=== PATIENT | female | born 1965 | race Caucasian/White ===

== ENCOUNTER → 2017-03-18 | Outpatient (CLI) | payer BC ==
--- NOTE | 2017-03-18 09:53 | NM ---
EXAMINATION TYPE: NM hepatobiliary w EF DATE OF EXAM: 03/18/2017 COMPARISON: CT abdomen and pelvis December 23, 2015 HISTORY: Right upper quadrant pain per order. Pain for 3 weeks with heartburn and reflux-like symptom s. TECHNIQUE: After the intravenous administration of 5.5 mCi Tc 99m Mebrofenin hepatobiliary scintigrap hy is performed. Immediate images post injection. FINDINGS: There is satisfactory initial accumulation of tracer by the liver. The gallbladder is visualized wit hin 15 minutes. The small bowel activity is noted within 20 minutes. At one hour 8 ounces of oral e nsure plus is given to mimic CCK and gallbladder ejection fraction is calculated at 18 %, diminished from the normal range. Therefore there is no scintigraphic evidence of cystic or common bile duct ob struction to suggest acute cholecystitis overall diminished ejection fraction is consistent with director of student financial services taras cholecystitis or gallbladder dyskinesia. IMPRESSION: Ejection fraction is 18%, diminished from the normal range, scintigraphic findings are co nsistent with underlying gallbladder dyskinesia.
== END | disposition home or self-care (01) ==
LOC: RADNMMAIN 07:01
PROVIDERS: ATTEND Family Medicine
DX: R10.11 Right upper quadrant pain (principal)
CPT/HCPCS: 78226; A9537

== ENCOUNTER 2017-05-25 08:09 | Day surgery (SDC) | payer BC ==
[2017-05-20 12:00] VITALS: BMI 33.9
[~2017-05-25 08:09] MED LIST: LACTATED RINGERS 1,000 ML IV SCH; LIDOCAINE 1% 20 ML VIAL (10MG/ML) FOR IV START INTRADERMA PRN
[2017-05-25 09:13] LABS: Glucose,Whole Blood 127 mg/dL (75-99)
[2017-05-25 09:21] VITALS: TEMP 97.4
[2017-05-25] MEDS ORDERED: PROPOFOL 10 MG/ML 20 ML VIAL IV ONE (09:44)
[2017-05-25] MEDS ORDERED: LIDOCAINE 1% INJ 10MG/ML (20 ML MDV) ONE (09:44)
--- NOTE | 2017-05-25 10:13 | P.PCN ---
Date of Procedure: 05/25/17 Procedure(s) Performed: BRIEF HISTORY: Patient is a 51-year-old pleasant white female, scheduled for an elective colonoscopy as a part of screening for colorectal neoplasia. PROCEDURE PERFORMED: Colonoscopy with snare polypectomy. PREOPERATIVE DIAGNOSIS: Screening for colon cancer. IV sedation per Anesthesia. PROCEDURE: After informed consent was obtained, the patient, was brought into the endoscopy unit. IV sedation was administered by Anesthesia under continuous monitoring. Digital rectal examination was normal. Initially the Olympus CF- 160 flexible video colonoscope was then inserted in the rectum, gradually advanced into the cecum without any difficulty. Careful examination was performed as the scope was gradually being withdrawn. Ileocecal valve and the appendiceal orifice were visualized and appeared normal. Prep was excellent. Mucosa of the cecum, ascending colon, transverse colon, appeared normal. In the transverse colon there was a 7-8 mm polyp that was removed by snare polypectomy. Rest of the descending colon, sigmoid colon, and rectum appeared normal. Retroflexion was performed in the rectum and no lesions were seen. The patient tolerated the procedure well. IMPRESSION: 7-8 mm transverse colon polyp status post polypectomy Rest of the colon appeared normal RECOMMENDATIONS: Findings of this examination were discussed with the patient as well as a family. She was advised to follow with the biopsy results. If the biopsy shows a tubular adenoma, she can have a repeat colonoscopy in 5 years..
[2017-05-25 10:23] VITALS: BP 123/75; PULSE 71; RESP 18
== END 2017-05-25 10:43 | disposition home or self-care (01) ==
LOC: ORWHC2ENDO 08:09
PROVIDERS: ATTEND Internal Medicine Gastroenterology
DX: Z12.11 Encounter for screening for malignant neoplasm of colon (principal); K63.5 Polyp of colon; I10 Essential (primary) hypertension; E78.5 Hyperlipidemia, unspecified; I47.1 Supraventricular tachycardia; K21.9 Gastro-esophageal reflux disease without esophagitis; E11.9 Type 2 diabetes mellitus without complications; Z88.0 Allergy status to penicillin; Z88.5 Allergy status to narcotic agent; Z88.2 Allergy status to sulfonamides; Z79.899 Other long term (current) drug therapy; Z91.048 Other nonmedicinal substance allergy status
CPT/HCPCS: 81025; 88305; 45385; J2001; J2704

== ENCOUNTER → 2018-11-20 | Outpatient (CLI) | payer BC ==
--- NOTE | 2018-11-22 11:43 | MM ---
Reason for exam: screening (asymptomatic). Last mammogram was performed 2 years and 10 months ago. History: Patient is nulliparous. Physical Findings: A clinical breast exam by your physician is recommended on an annual basis and results should be correlated with mammographic findings. MG Screening Mammo w CAD Bilateral CC and MLO view(s) were taken. Prior study comparison: January 26, 2016, bilateral MG screening mammo w CAD. The breast tissue is heterogeneously dense. This may lower the sensitivity of mammography. There are benign appearing dystrophic calcifications bilaterally. There is no discrete abnormality. ASSESSMENT: Benign, BI-RAD 2 RECOMMENDATION: Routine screening mammogram of both breasts in 1 year.
== END | disposition home or self-care (01) ==
LOC: RADMAMWWP 13:06
PROVIDERS: ATTEND Family Medicine
DX: Z12.31 Encounter for screening mammogram for malignant neoplasm of breast (principal)
CPT/HCPCS: 77067

== ENCOUNTER → 2019-04-11 | Outpatient (CLI) | payer BC ==
--- NOTE | 2019-04-11 11:02 | US ---
EXAMINATION TYPE: US gallbladder DATE OF EXAM: 04/11/2019 COMPARISON: NM 03/18/2017, CT 12/23/2015 CLINICAL HISTORY: R10.13 Epigastric pain. Difficult and limited study due to overlying bowel gas. Abn ormal ejection fraction, abdominal pain EXAM MEASUREMENTS: Liver Length: 15.0 cm Gallbladder Wall: 0.4 cm CBD: 0.3 cm Right Kidney: 10.8 x 4.4 x 4.1 cm Pancreas: Obscured by bowel gas Liver: Heterogeneous Gallbladder: Possible polyp measuring 0.7 cm, wall appears thickened at 0.4 cm. Normal less than 0.3 cm. Evidence for sonographic Mendoza's sign: No CBD: Very limited visualization due to bowel gas, visualized portions wnl Right Kidney: No hydronephrosis or masses seen IMPRESSION: 1. Polyp versus adherent gallstone. Gallbladder wall thickening is present. Clinical correlation lorin mmended for acute cholecystitis.
== END | disposition home or self-care (01) ==
LOC: RADUSWWP 10:04
PROVIDERS: ATTEND Internal Medicine Gastroenterology
DX: K82.8 Other specified diseases of gallbladder (principal)
CPT/HCPCS: 76705

== ENCOUNTER 2019-08-04 22:39 | Emergency (ER) | payer BC ==
[2019-08-04 22:46] VITALS: TEMP 98.1
[2019-08-04 23:19] LABS: Basophils # (A) 0.1 k/uL (0-0.2); Basophils % (A) 1 %; Eosinophils # (A) 0.3 k/uL (0-0.7); Eosinophils % (A) 4 %; HCT 46.7 % (34.0-46.0); HGB 15.5 gm/dL (11.4-16.0); Lymphocytes # (A) 1.7 k/uL (1.0-4.8); Lymphocytes % (A) 20 %; MCH 30.2 pg (25.0-35.0); MCHC 33.2 g/dL (31.0-37.0); MCV 91.1 fL (80.0-100.0); Mean Platelet Volume 7.4; Monocytes # (A) 0.6 k/uL (0-1.0); Monocytes % (A) 6 %; Neutrophils # (A) 5.8 k/uL (1.3-7.7); Neutrophils % (A) 67 %; Platelet Count 300 k/uL (150-450); RBC 5.13 m/uL (3.80-5.40); RDW 12.5 % (11.5-15.5); WBC 8.7 k/uL (3.8-10.6)
[2019-08-04] MEDS ORDERED: SODIUM CHLORIDE 0.9% 1,000 ML IV ONE (23:24)
[2019-08-04 23:28] LABS: ALT 16 U/L (4-34); AST 40 U/L (14-36); African American GFR (CKD) >90 (>60 ml/min/1.73 sqM); Albumin 4.8 g/dL (3.5-5.0); Alkaline Phosphatase 82 U/L (38-126); Anion Gap 9 mmol/L; Blood Urea Nitrogen 17 mg/dL (7-17); Calcium 9.8 mg/dL (8.4-10.2); Carbon Dioxide 22 mmol/L (22-30); Chloride 107 mmol/L (98-107); Glucose 159 mg/dL (74-99); Non-African American GFR(CKD) 89 (>60 ml/min/1.73 sqM); Sodium 138 mmol/L (137-145); Total Bilirubin 1.3 mg/dL (0.2-1.3)
[2019-08-04 23:55] LABS: Appearance,Urine Clear (Clear); Bilirubin,Urine Negative (Negative); Blood,Urine Negative (Negative); Color,Urine Yellow; Glucose,Urine (UA) Negative (Negative); Hyaline Casts,Urine 3 /lpf (0-2); Ketones,Urine Negative (Negative); Leukocyte Esterase,Urine Negative (Negative); Mucus,Urine Rare /hpf; Nitrite,Urine Negative (Negative); PH, Urine 5.5 (5.0-8.0); Protein,Urine 1+ (Negative); RBC,Urine <1 /hpf (0-5); Specific Gravity,Urine 1.016 (1.001-1.035); Squamous Epithelial Cell,Urine 1 /hpf (0-4); Urobilinogen,Urine <2.0 mg/dL (<2.0); WBC,Urine 1 /hpf (0-5)
[2019-08-05 00:16] VITALS: BP 158/85; PULSE 80; RESP 16
--- NOTE | 2019-08-05 00:47 | ED ---
General Adult HPI - General Chief complaint: Recheck/Abnormal Lab/Rx Stated complaint: Weakness Time Seen by Provider: 08/04/19 22:53 Source: patient, RN notes reviewed, old records reviewed Mode of arrival: ambulatory Limitations: no limitations - History of Present Illness Initial comments: 53-year-old female patient who is a type I diabetic presents to ED for evaluation. She reports that for the last few days her blood sugars have been running high between 2 and 300. She reports that she has ketone urine strips and the last 2 days she was positive for ketones. Denies any focal area of pain. Denies any pain with urination. Denies any cough congestion denies any signs of infection anywhere. Patient does have an insulin pump. Denies any other complaints. Systemic: Pt denies fatigue, fever/chills, rash. Pt denies weakness, night sweats, weight loss. Neuro: Pt denies headache, visual disturbances, syncope or pre-syncope. HEENT: Pt denies ocular discharge or irritation, otalgia, rhinorrhea, pharyngitis or notable lymphadenopathy. Cardiopulmonary: Pt denies chest pain, SOB, heart palpitations, dyspnea on exertion. Abdominal/GI: Pt denies abdominal pain, n/v/d. : Pt denies dysuria, burning w/ urination, frequency/urgency. Denies new onset urinary or bowel incontinence. MSK: Pt denies myalgia, loss of strength or function in extremities. Neuro: Pt denies new onset weakness, paresthesias. - Related Data Home Medications Medication Instructions Recorded Confirmed Atenolol [Tenormin] 25 mg PO HS 09/12/14 05/20/17 Clobetasol Propionate [Temovate 1 applic TOPICAL DAILY PRN 09/12/14 05/20/17 0.05% Cream] Ibuprofen [Advil] 200 mg PO Q8HR PRN 09/12/14 05/20/17 Insulin Aspart [NovoLOG] 0 unit PO DIRECTED 09/12/14 05/20/17 Losartan Potassium [Cozaar] 50 mg PO HS 09/12/14 05/20/17 Ranitidine HCl [Zantac] 150 mg PO DAILY PRN 09/12/14 05/20/17 Simvastatin [Zocor] 20 mg PO HS 09/12/14 05/20/17 amLODIPine [Norvasc] 2.5 mg PO HS 09/12/14 05/20/17 Previous Rx's Medication Instructions Recorded Ondansetron [Zofran] 4 mg PO Q8HR PRN #20 tab 09/14/14 Allergies Allergy/AdvReac Type Severity Reaction Status Date / Time adhesive Allergy Rash/Hives Verified 08/04/19 22:46 Penicillins Allergy Rash/Hives Verified 08/04/19 22:46 Sulfa (Sulfonamide Allergy Hallucinati Verified 08/04/19 22:46 Antibiotics) ons codeine AdvReac Chest Pain Verified 08/04/19 22:46 Review of Systems ROS Statement: Those systems with pertinent positive or pertinent negative responses have been documented in the HPI. ROS Other: All systems not noted in ROS Statement are negative. Past Medical History Past Medical History: Diabetes Mellitus, Hyperlipidemia, Hypertension, Skin Disorder Additional Past Medical History / Comment(s): hx of intermittant tachycardia, childhood asthma, ? eczema, has patches currently on back History of Any Multi-Drug Resistant Organisms: None Reported Past Surgical History: Orthopedic Surgery, Uterine Ablation Additional Past Surgical History / Comment(s): EGD, trigger finger; R Arm L Leg; kervin eye surgery for hemorhage Past Anesthesia/Blood Transfusion Reactions: Motion Sickness, Postoperative Nausea & Vomiting (PONV) Past Psychological History: No Psychological Hx Reported Smoking Status: Never smoker Past Alcohol Use History: Occasional Past Drug Use History: None Reported - Past Family History Father Family Medical History: Diabetes Mellitus Mother Family Medical History: Diabetes Mellitus, Hypertension General Exam - General Exam Comments Initial Comments: Constitutional: NAD, AOX3, Pt has pleasant affect. HEENT: NC/AT, trachea midline, neck supple, no lymphadenopathy. External ears appear normal, without discharge. Mucous membranes moist. Eyes PERRLA. There is no scleral icterus. No pallor noted. Cardiopulmonary: RRR, no murmurs, rubs or gallops, no JVD noted. Lungs CTAB in anterior and posterior whitney. No peripheral edema. Neuro: CN II-XII grossly intact. No nuchal rigidity. No raccon eyes, no harper sign, no hemotympanum. MSK: Full active ROM in upper and lower extremities, 5/5 stregnth. Limitations: no limitations Course Vital Signs 08/04/19 08/05/19 22:40 00:14 Temperature 98.1 F Pulse Rate 111 H 80 Respiratory 18 16 Rate Blood Pressure 163/86 158/85 O2 Sat by Pulse 98 98 Oximetry Medical Decision Making - Medical Decision Making 53-year-old female patient who is a type I diabetic presents to ED for evaluation. She reports that for the last few days her blood sugars have been running high between 2 and 300. She reports that she has ketone urine strips and the last 2 days she was positive for ketones. Denies any focal area of pain. Denies any pain with urination. Denies any cough congestion denies any signs of infection anywhere. Patient does have an insulin pump. Denies any other complaints. Pt VSS, afebrile. Physical exam displayed no acute pathology. Laboratory investigations were nonimmpressive. Patient was administered 1 L normal saline. Patient states that she is feeling better. Will be discharged, will follow up with PCP tomorrow. We'll monitor blood sugar at home and return to ER if condition worsens. Case discussed with Dr. Martinez. - Lab Data Result diagrams: 08/04/19 23:00 08/04/19 23:00 Lab Results 08/04/19 08/04/19 08/04/19 Range/Units 23:00 23:00 23:00 WBC 8.7 (3.8-10.6) k/uL RBC 5.13 (3.80-5.40) m/uL Hgb 15.5 (11.4-16.0) gm/dL Hct 46.7 H (34.0-46.0) % MCV 91.1 (80.0-100.0) fL MCH 30.2 (25.0-35.0) pg MCHC 33.2 (31.0-37.0) g/dL RDW 12.5 (11.5-15.5) % Plt Count 300 (150-450) k/uL Neutrophils % 67 % Lymphocytes % 20 % Monocytes % 6 % Eosinophils % 4 % Basophils % 1 % Neutrophils # 5.8 (1.3-7.7) k/uL Lymphocytes # 1.7 (1.0-4.8) k/uL Monocytes # 0.6 (0-1.0) k/uL Eosinophils # 0.3 (0-0.7) k/uL Basophils # 0.1 (0-0.2) k/uL Sodium (137-145) mmol/L Potassium (3.5-5.1) mmol/L Chloride (98-107) mmol/L Carbon Dioxide (22-30) mmol/L Anion Gap mmol/L BUN (7-17) mg/dL Creatinine (0.52-1.04) mg/dL Est GFR (CKD-EPI)AfAm (>60 ml/min/1.73 sqM) Est GFR (CKD-EPI)NonAf (>60 ml/min/1.73 sqM) Glucose (74-99) mg/dL Plasma Lactic Acid Chente (0.7-2.0) mmol/L Calcium (8.4-10.2) mg/dL Total Bilirubin (0.2-1.3) mg/dL AST (14-36) U/L ALT (4-34) U/L Alkaline Phosphatase (38-126) U/L Total Protein (6.3-8.2) g/dL Albumin (3.5-5.0) g/dL Urine Color Yellow Urine Appearance Clear (Clear) Urine pH 5.5 (5.0-8.0) Ur Specific [place] 1.016 (1.001-1.035) Urine Protein 1+ H (Negative) Urine Glucose (UA) Negative (Negative) Urine Ketones Negative (Negative) Urine Blood Negative (Negative) Urine Nitrite Negative (Negative) Urine Bilirubin Negative (Negative) Urine Urobilinogen <2.0 (<2.0) mg/dL Ur Leukocyte Esterase Negative (Negative) Urine RBC <1 (0-5) /hpf Urine WBC 1 (0-5) /hpf Ur Squamous Epith Cells 1 (0-4) /hpf Hyaline Casts 3 H (0-2) /lpf Urine Mucus Rare H (None) /hpf Urine HCG, Qual Not Detected (Not Detectd) Acetone, Qual (Negative) 08/04/19 08/04/19 Range/Units 23:00 23:00 WBC (3.8-10.6) k/uL RBC (3.80-5.40) m/uL Hgb (11.4-16.0) gm/dL Hct (34.0-46.0) % MCV (80.0-100.0) fL MCH (25.0-35.0) pg MCHC (31.0-37.0) g/dL RDW (11.5-15.5) % Plt Count (150-450) k/uL Neutrophils % % Lymphocytes % % Monocytes % % Eosinophils % % Basophils % % Neutrophils # (1.3-7.7) k/uL Lymphocytes # (1.0-4.8) k/uL Monocytes # (0-1.0) k/uL Eosinophils # (0-0.7) k/uL Basophils # (0-0.2) k/uL Sodium 138 (137-145) mmol/L Potassium (3.5-5.1) mmol/L Chloride 107 (98-107) mmol/L Carbon Dioxide 22 (22-30) mmol/L Anion Gap 9 mmol/L BUN 17 (7-17) mg/dL Creatinine 0.77 (0.52-1.04) mg/dL Est GFR (CKD-EPI)AfAm >90 (>60 ml/min/1.73 sqM) Est GFR (CKD-EPI)NonAf 89 (>60 ml/min/1.73 sqM) Glucose 159 H (74-99) mg/dL Plasma Lactic Acid [place] 1.4 (0.7-2.0) mmol/L Calcium 9.8 (8.4-10.2) mg/dL Total Bilirubin 1.3 (0.2-1.3) mg/dL AST 40 H (14-36) U/L ALT 16 (4-34) U/L Alkaline Phosphatase 82 (38-126) U/L Total Protein 9.0 H (6.3-8.2) g/dL Albumin 4.8 (3.5-5.0) g/dL Urine Color Urine Appearance (Clear) Urine pH (5.0-8.0) Ur Specific [place] (1.001-1.035) Urine Protein (Negative) Urine Glucose (UA) (Negative) Urine Ketones (Negative) Urine Blood (Negative) Urine Nitrite (Negative) Urine Bilirubin (Negative) Urine Urobilinogen (<2.0) mg/dL Ur Leukocyte Esterase (Negative) Urine RBC (0-5) /hpf Urine WBC (0-5) /hpf Ur Squamous Epith Cells (0-4) /hpf Hyaline Casts (0-2) /lpf Urine Mucus (None) /hpf Urine HCG, Qual (Not Detectd) Acetone, Qual Negative (Negative) Disposition Clinical Impression: Hyperglycemia Disposition: HOME SELF-CARE Condition: Stable Instructions (If sedation given, give patient instructions): Diabetic Hyperglycemia (ED) Additional Instructions: Follow-up with primary care provider tomorrow. Continue to monitor sugars closely at home. Return to ER if condition worsens in any way. Is patient prescribed a controlled substance at d/c from ED?: No Referrals: Fred Schwartz DO [Primary Care Provider] - 1-2 days
== END 2019-08-05 01:03 | disposition home or self-care (01) ==
LOC: EC 22:39
DX: E10.65 Type 1 diabetes mellitus with hyperglycemia (principal); R82.4 Acetonuria; I10 Essential (primary) hypertension; E78.5 Hyperlipidemia, unspecified; L98.9 Disorder of the skin and subcutaneous tissue, unspecified; Z79.899 Other long term (current) drug therapy; Z79.84 Long term (current) use of oral hypoglycemic drugs; Z88.0 Allergy status to penicillin; Z88.2 Allergy status to sulfonamides; Z88.5 Allergy status to narcotic agent; Z91.048 Other nonmedicinal substance allergy status; Z83.3 Family history of diabetes mellitus; Z96.41 Presence of insulin pump (external) (internal)
CPT/HCPCS: 36415; 80053; 81001; 81025; 82009; 83605; 85025; 96360; 99285

== ENCOUNTER 2019-12-17 05:50 | Emergency (ER) | payer BC ==
[2019-12-17 05:54] VITALS: TEMP 98.7
[2019-12-17] MEDS ORDERED: SODIUM CHLORIDE 0.9% 500 ML 500 ML IV STA (06:16)
--- NOTE | 2019-12-17 06:29 | ED ---
Arrhythmia/Palpitations HPI - General Chief Complaint: Arrhythmia/Palpitations Stated Complaint: rapid heart rate Time Seen by Provider: 12/17/19 06:00 Source: patient Mode of arrival: ambulatory Limitations: no limitations - History of Present Illness Initial Comments: Patient is a 54-year-old female presenting to the emergency department complaints of palpitations for the last 2 weeks. Patient states her typewriter operator automatic, Dr. Wharton, recently switched her statin medication to rosuvastatin 2 weeks ago and patient states she feels like she has been having an increase in palpitations, low appetite and an occasional "pinch" over the left side of her heart. She denies any sharp or radiating chest pain, shortness of breath, fever, chills. She states she does have appointment for a chemical stress test in the next week or 2, she is unsure the day. She denies any other recent changes in her medication. She admits to some mild intermittent nausea, no vomiting, loose stools which is normal for her. She denies any lower leg swelling. She has no further complaints at this time. Upon arrival to the ER, her vital signs are stable. - Related Data Home Medications Medication Instructions Recorded Confirmed Clobetasol Propionate [Temovate 1 applic TOPICAL DAILY PRN 09/12/14 12/17/19 0.05% Cream] Losartan Potassium [Cozaar] 100 mg PO HS 09/12/14 12/17/19 amLODIPine [Norvasc] 2.5 mg PO HS 09/12/14 12/17/19 ALPRAZolam [Xanax] 0.25 mg PO BID PRN 12/17/19 12/17/19 Atenolol [Tenormin] 25 mg PO HS 12/17/19 12/17/19 Cetirizine HCl [Zyrtec] 10 mg PO DAILY PRN 12/17/19 12/17/19 Cholecalciferol [Vitamin D3 (25 4,000 unit PO DIRECTED 12/17/19 12/17/19 Mcg = 1000 Iu)] Glucagon [Baqsimi] 1 spray NASAL ONCE PRN 12/17/19 12/17/19 Insulin Aspart (For Pump) [NovoLOG 0.01 unit SQ-PUMP CONTINUOUS 12/17/19 12/17/19 (For Pump)] Omeprazole 20 mg PO DAILY PRN 12/17/19 12/17/19 Rosuvastatin [Crestor] 20 mg PO HS 12/17/19 12/17/19 Vitamin E And Zinc Packet 1 pack PO DAILY 12/17/19 12/17/19 Allergies Allergy/AdvReac Type Severity Reaction Status Date / Time adhesive Allergy Rash/Hives Verified 12/17/19 06:40 Penicillins Allergy Rash/Hives Verified 12/17/19 06:40 Sulfa (Sulfonamide Allergy Hallucinati Verified 12/17/19 06:40 Antibiotics) ons codeine AdvReac Chest Pain Verified 12/17/19 06:40 Review of Systems ROS Statement: Those systems with pertinent positive or pertinent negative responses have been documented in the HPI. ROS Other: All systems not noted in ROS Statement are negative. Past Medical History Past Medical History: Diabetes Mellitus, Hyperlipidemia, Hypertension, Skin Disorder Additional Past Medical History / Comment(s): hx of intermittant tachycardia, childhood asthma, ? eczema, has patches currently on back History of Any Multi-Drug Resistant Organisms: None Reported Past Surgical History: Orthopedic Surgery, Uterine Ablation Additional Past Surgical History / Comment(s): EGD, trigger finger; R Arm L Leg; kervin eye surgery for hemorhage Past Anesthesia/Blood Transfusion Reactions: Motion Sickness, Postoperative Nausea & Vomiting (PONV) Past Psychological History: No Psychological Hx Reported Smoking Status: Never smoker Past Alcohol Use History: Occasional Past Drug Use History: None Reported - Past Family History Father Family Medical History: Diabetes Mellitus Mother Family Medical History: Diabetes Mellitus, Hypertension General Exam - General Exam Comments Initial Comments: GENERAL: Patient is well-developed and well-nourished. Patient is nontoxic and in no acute distress. HEAD: Atraumatic, normocephalic. EYES: Pupils equal round and reactive to light, extraocular movements intact, sclera anicteric, conjunctiva are normal. Eyelids were unremarkable. ENT: TMs normal, nares patent, oropharynx clear without exudates. Moist mucous membranes. NECK: Normal range of motion, supple without lymphadenopathy or JVD. LUNGS: Unlabored respirations. Breath sounds clear to auscultation bilaterally and equal. No wheezes rales or rhonchi. HEART: Regular rate and rhythm without murmurs, rubs or gallops. ABDOMEN: Soft, nontender, normoactive bowel sounds. No guarding, no rebound. No masses appreciated. : Deferred MUSCULOSKELETAL: Normal extremities with adequate strength and normal range of motion, no pitting or edema. No clubbing or cyanosis. NEUROLOGICAL: Patient is alert and oriented x 3. Motor and sensory are also intact. Cranial nerves II through XII grossly intact. Symmetrical smile. Normal speech, normal gait. PSYCH: Normal mood, normal affect. SKIN: Warm, Dry, normal turgor, no rashes or lesions noted. Limitations: no limitations Course Vital Signs 12/17/19 12/17/19 12/17/19 05:50 07:30 08:00 Temperature 98.7 F Pulse Rate 87 65 74 Respiratory 20 16 18 Rate Blood Pressure 158/86 138/69 150/75 O2 Sat by Pulse 97 96 97 Oximetry EKG Findings - EKG Comments: EKG Findings:: Normal sinus rhythm, no signs of acute ischemia, inferior infarct, age undetermined. Ventricular rate 72, ND interval 176, QT 406. Medical Decision Making - Medical Decision Making Patient is a 54-year-old female here for palpitations that have been intermittent for the past 2 weeks. Her typewriter operator automatic, Dr. Troy recently switch her statin to rosuvastatin. Patient denies any chest pains, shortness of breath, nausea, vomiting, abdominal pain. Her EKG shows no acute process, chest x-ray is normal. Her labs show no acute process, troponin is normal. Urine shows no evidence of infection. I do give patient some fluids here in the ER. She is remains asymptomatic in the ER. Discussed with patient that her workup today is normal, her symptoms could be related to her new Almanzar. I recommended switching back to her old statin and to follow up with her c ardiologist this week. Patient is in agreement with this plan of care. She is stable for discharge. Return parameters were discussed with the patient she verbalized understanding. Case discussed with Dr. Jaramillo. - Lab Data Result diagrams: 12/17/19 07:01 12/17/19 07:01 Lab Results 12/17/19 12/17/19 12/17/19 Range/Units 07:01 07:01 07:01 WBC 9.9 (3.8-10.6) k/uL RBC 4.46 (3.80-5.40) m/uL Hgb 14.0 (11.4-16.0) gm/dL Hct 41.9 (34.0-46.0) % MCV 94.1 (80.0-100.0) fL MCH 31.3 (25.0-35.0) pg MCHC 33.3 (31.0-37.0) g/dL RDW 12.3 (11.5-15.5) % Plt Count 277 (150-450) k/uL Neutrophils % 79 % Lymphocytes % 12 % Monocytes % 4 % Eosinophils % 2 % Basophils % 1 % Neutrophils # 7.8 H (1.3-7.7) k/uL Lymphocytes # 1.2 (1.0-4.8) k/uL Monocytes # 0.4 (0-1.0) k/uL Eosinophils # 0.2 (0-0.7) k/uL Basophils # 0.1 (0-0.2) k/uL PT 9.9 (9.0-12.0) sec INR 0.9 (<1.2) APTT 23.6 (22.0-30.0) sec Sodium (137-145) mmol/L Potassium (3.5-5.1) mmol/L Chloride (98-107) mmol/L Carbon Dioxide (22-30) mmol/L Anion Gap mmol/L BUN (7-17) mg/dL Creatinine (0.52-1.04) mg/dL Est GFR (CKD-EPI)AfAm (>60 ml/min/1.73 sqM) Est GFR (CKD-EPI)NonAf (>60 ml/min/1.73 sqM) Glucose (74-99) mg/dL Calcium (8.4-10.2) mg/dL Magnesium (1.6-2.3) mg/dL Total Bilirubin (0.2-1.3) mg/dL AST (14-36) U/L ALT (4-34) U/L Alkaline Phosphatase (38-126) U/L Troponin I (0.000-0.034) ng/mL Total Protein (6.3-8.2) g/dL Albumin (3.5-5.0) g/dL TSH (0.465-4.680) mIU/L Urine Color Light Yellow Urine Appearance Clear (Clear) Urine pH 5.5 (5.0-8.0) Ur Specific [place] 1.007 (1.001-1.035) Urine Protein Negative (Negative) Urine Glucose (UA) Negative (Negative) Urine Ketones Negative (Negative) Urine Blood Negative (Negative) Urine Nitrite Negative (Negative) Urine Bilirubin Negative (Negative) Urine Urobilinogen <2.0 (<2.0) mg/dL Ur Leukocyte Esterase Negative (Negative) 12/17/19 12/17/19 Range/Units 07:01 07:01 WBC (3.8-10.6) k/uL RBC (3.80-5.40) m/uL Hgb (11.4-16.0) gm/dL Hct (34.0-46.0) % MCV (80.0-100.0) fL MCH (25.0-35.0) pg MCHC (31.0-37.0) g/dL RDW (11.5-15.5) % Plt Count (150-450) k/uL Neutrophils % % Lymphocytes % % Monocytes % % Eosinophils % % Basophils % % Neutrophils # (1.3-7.7) k/uL Lymphocytes # (1.0-4.8) k/uL Monocytes # (0-1.0) k/uL Eosinophils # (0-0.7) k/uL Basophils # (0-0.2) k/uL PT (9.0-12.0) sec INR (<1.2) APTT (22.0-30.0) sec Sodium 138 (137-145) mmol/L Potassium 4.0 (3.5-5.1) mmol/L Chloride 107 (98-107) mmol/L Carbon Dioxide 26 (22-30) mmol/L Anion Gap 5 mmol/L BUN 18 H (7-17) mg/dL Creatinine 0.77 (0.52-1.04) mg/dL Est GFR (CKD-EPI)AfAm >90 (>60 ml/min/1.73 sqM) Est GFR (CKD-EPI)NonAf 88 (>60 ml/min/1.73 sqM) Glucose 181 H (74-99) mg/dL Calcium 9.2 (8.4-10.2) mg/dL Magnesium 1.7 (1.6-2.3) mg/dL Total Bilirubin 0.5 (0.2-1.3) mg/dL AST 23 (14-36) U/L ALT 16 (4-34) U/L Alkaline Phosphatase 78 (38-126) U/L Troponin I <0.012 (0.000-0.034) ng/mL Total Protein 7.2 (6.3-8.2) g/dL Albumin 3.8 (3.5-5.0) g/dL TSH 4.810 H (0.465-4.680) mIU/L Urine Color Urine Appearance (Clear) Urine pH (5.0-8.0) Ur Specific [place] (1.001-1.035) Urine Protein (Negative) Urine Glucose (UA) (Negative) Urine Ketones (Negative) Urine Blood (Negative) Urine Nitrite (Negative) Urine Bilirubin (Negative) Urine Urobilinogen (<2.0) mg/dL Ur Leukocyte Esterase (Negative) Disposition Clinical Impression: Palpitations Disposition: HOME SELF-CARE Condition: Stable Instructions (If sedation given, give patient instructions): Heart Palpitations (ED) Additional Instructions: Please return to the Emergency Department if symptoms worsen or any other concerns. Labs, EKG, and X-rays were normal today. Follow-up with your typewriter operator automatic this week as discussed. Is patient prescribed a controlled substance at d/c from ED?: No Referrals: Fred Schwartz DO [Primary Care Provider] - 1-2 days John Troy MD [STAFF PHYSICIAN] - 1-2 days
[2019-12-17 07:15] LABS: Appearance,Urine Clear (Clear); Bilirubin,Urine Negative (Negative); Blood,Urine Negative (Negative); Color,Urine Light Yellow; Glucose,Urine (UA) Negative (Negative); Ketones,Urine Negative (Negative); Leukocyte Esterase,Urine Negative (Negative); Nitrite,Urine Negative (Negative); PH, Urine 5.5 (5.0-8.0); Protein,Urine Negative (Negative); Specific Gravity,Urine 1.007 (1.001-1.035); Urobilinogen,Urine <2.0 mg/dL (<2.0)
[2019-12-17 07:16] LABS: Basophils # (A) 0.1 k/uL (0-0.2); Basophils % (A) 1 %; Eosinophils # (A) 0.2 k/uL (0-0.7); Eosinophils % (A) 2 %; HCT 41.9 % (34.0-46.0); Lymphocytes # (A) 1.2 k/uL (1.0-4.8); Lymphocytes % (A) 12 %; MCH 31.3 pg (25.0-35.0); MCHC 33.3 g/dL (31.0-37.0); MCV 94.1 fL (80.0-100.0); Monocytes # (A) 0.4 k/uL (0-1.0); Monocytes % (A) 4 %; Neutrophils # (A) 7.8 k/uL (1.3-7.7); Neutrophils % (A) 79 %; Platelet Count 277 k/uL (150-450); RBC 4.46 m/uL (3.80-5.40); RDW 12.3 % (11.5-15.5); WBC 9.9 k/uL (3.8-10.6)
--- NOTE | 2019-12-17 07:22 | XR ---
EXAMINATION TYPE: XR chest 2V DATE OF EXAM: 12/17/2019 COMPARISON: 09/12/2014 HISTORY: 54-year-old female dysrhythmia TECHNIQUE: PA and lateral views FINDINGS: Heart normal size. Aorta and pulmonary vasculature within normal limits. No consolidation or pleural effusion. IMPRESSION: No acute cardiopulmonary process.
[2019-12-17 07:27] LABS: INR 0.9 (<1.2); Partial Thromboplastin Time 23.6 sec (22.0-30.0); Prothrombin Time 9.9 sec (9.0-12.0)
[2019-12-17 07:29] LABS: ALT 16 U/L (4-34); AST 23 U/L (14-36); African American GFR (CKD) >90 (>60 ml/min/1.73 sqM); Albumin 3.8 g/dL (3.5-5.0); Alkaline Phosphatase 78 U/L (38-126); Anion Gap 5 mmol/L; Blood Urea Nitrogen 18 mg/dL (7-17); Calcium 9.2 mg/dL (8.4-10.2); Carbon Dioxide 26 mmol/L (22-30); Chloride 107 mmol/L (98-107); Glucose 181 mg/dL (74-99); Magnesium 1.7 mg/dL (1.6-2.3); Non-African American GFR(CKD) 88 (>60 ml/min/1.73 sqM); Sodium 138 mmol/L (137-145); Total Bilirubin 0.5 mg/dL (0.2-1.3); Total Protein 7.2 g/dL (6.3-8.2)
[2019-12-17 08:13] VITALS: BP 150/75; PULSE 74; RESP 18
== END 2019-12-17 08:27 | disposition home or self-care (01) ==
LOC: EC 05:50
DX: R00.2 Palpitations (principal); E11.9 Type 2 diabetes mellitus without complications; E78.5 Hyperlipidemia, unspecified; I10 Essential (primary) hypertension; Z79.899 Other long term (current) drug therapy; Z96.41 Presence of insulin pump (external) (internal); Z88.0 Allergy status to penicillin; Z88.2 Allergy status to sulfonamides; Z88.5 Allergy status to narcotic agent; Z91.048 Other nonmedicinal substance allergy status
CPT/HCPCS: 36415; 71046; 80053; 81003; 83735; 84443; 84484; 85025; 85610; 85730; 93005; 96360; 99285

== ENCOUNTER 2020-01-11 01:46 | Emergency (ER) | payer BC ==
[2020-01-11] MEDS ORDERED: LABETALOL 5 MG/ML VIAL MDV IVP STA (02:02)
[2020-01-11] MEDS ORDERED: SODIUM CHLORIDE 0.9% 1,000 ML IV STA (02:02)
[2020-01-11] MEDS ORDERED: LORazepam 2 MG/ML INJ IV STA (02:02)
--- NOTE | 2020-01-11 02:02 | ED ---
Recheck HPI - General Chief Complaint: Recheck/Abnormal Lab/Rx Stated Complaint: high blood pressure Time Seen by Provider: 01/11/20 02:01 Source: patient, family, RN notes reviewed, old records reviewed Mode of arrival: ambulatory Limitations: no limitations - History of Present Illness Initial Comments: This is a 64-year-old female in mild to moderate distress shaking crying during questioning history taking, examination. Patient states her blood pressure is out of control and she has an internal tremor that she cannot stop it happened about 10 times a day and progressively worsens. She does take her blood pressure continues to escalate. Patient denies headache chest pain shortness breath or abdominal pain but is very concerned that something may be underlying. She has had this issue for months and is progressively worsening every day MD Complaint: other (hypertension and shaking) -: month(s) Initial Visit For: other (weakness) Returns Today for: persistent/worsening pain related to initial visit, other (increased blood pressure) Symptoms Since Prior Visit: no new symptoms Context: other (anxiety) Associated Symptoms: shortness of breath, malaise Treatments Prior to Arrival: other (none) - Related Data Home Medications Medication Instructions Recorded Confirmed Clobetasol Propionate [Temovate 1 applic TOPICAL DAILY PRN 09/12/14 12/17/19 0.05% Cream] Losartan Potassium [Cozaar] 100 mg PO HS 09/12/14 12/17/19 amLODIPine [Norvasc] 2.5 mg PO HS 09/12/14 12/17/19 ALPRAZolam [Xanax] 0.25 mg PO BID PRN 12/17/19 12/17/19 Atenolol [Tenormin] 25 mg PO HS 12/17/19 12/17/19 Cetirizine HCl [Zyrtec] 10 mg PO DAILY PRN 12/17/19 12/17/19 Cholecalciferol [Vitamin D3 (25 4,000 unit PO DIRECTED 12/17/19 12/17/19 Mcg = 1000 Iu)] Glucagon [Baqsimi] 1 spray NASAL ONCE PRN 12/17/19 12/17/19 Insulin Aspart (For Pump) [NovoLOG 0.01 unit SQ-PUMP CONTINUOUS 12/17/19 12/17/19 (For Pump)] Omeprazole 20 mg PO DAILY PRN 12/17/19 12/17/19 Rosuvastatin [Crestor] 20 mg PO HS 12/17/19 12/17/19 Vitamin E And Zinc Packet 1 pack PO DAILY 12/17/19 12/17/19 Allergies Allergy/AdvReac Type Severity Reaction Status Date / Time adhesive Allergy Rash/Hives Verified 01/11/20 01:55 Penicillins Allergy Rash/Hives Verified 01/11/20 01:55 Sulfa (Sulfonamide Allergy Hallucinati Verified 01/11/20 01:55 Antibiotics) ons codeine AdvReac Chest Pain Verified 01/11/20 01:55 Review of Systems ROS Statement: Those systems with pertinent positive or pertinent negative responses have been documented in the HPI. ROS Other: All systems not noted in ROS Statement are negative. Past Medical History Past Medical History: Diabetes Mellitus, Hyperlipidemia, Hypertension, Skin Disorder Additional Past Medical History / Comment(s): hx of intermittant tachycardia, childhood asthma, ? eczema, has patches currently on back History of Any Multi-Drug Resistant Organisms: None Reported Past Surgical History: Orthopedic Surgery, Uterine Ablation Additional Past Surgical History / Comment(s): EGD, trigger finger; R Arm L Leg; kervin eye surgery for hemorhage Past Anesthesia/Blood Transfusion Reactions: Motion Sickness, Postoperative Nausea & Vomiting (PONV) Past Psychological History: Anxiety Smoking Status: Never smoker Past Alcohol Use History: Occasional Past Drug Use History: None Reported - Past Family History Father Family Medical History: Diabetes Mellitus Mother Family Medical History: Diabetes Mellitus, Hypertension General Exam Limitations: no limitations, altered mental status General appearance: alert, in no apparent distress, anxious, in distress, other (shaking) Head exam: Present: atraumatic, normocephalic, normal inspection Eye exam: Present: normal appearance, PERRL, EOMI. Absent: scleral icterus, conjunctival injection, periorbital swelling ENT exam: Present: normal exam, mucous membranes moist Neck exam: Present: normal inspection. Absent: tenderness, meningismus, lymphadenopathy Respiratory exam: Present: normal lung sounds bilaterally. Absent: respiratory distress, wheezes, rales, rhonchi, stridor Cardiovascular Exam: Present: normal rhythm, tachycardia, normal heart sounds. Absent: systolic murmur, diastolic murmur, rubs, gallop, clicks GI/Abdominal exam: Present: soft, normal bowel sounds. Absent: distended, tenderness, guarding, rebound, rigid Extremities exam: Present: normal inspection, full ROM, normal capillary refill. Absent: tenderness, pedal edema, joint swelling, calf tenderness Back exam: Present: normal inspection Neurological exam: Present: alert, oriented X3, CN II-XII intact Psychiatric exam: Present: normal affect, normal mood Skin exam: Present: warm, dry, intact, normal color. 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 ] Respiratory 22 18 Rate Blood Pressure 194/111 140/76 O2 Sat by Pulse 100 98 Oximetry 01/11/20 03:09 Temperature Pulse Rate 74 Pulse Rate [ Lidar Scientist ] Respiratory 16 Rate Blood Pressure 145/72 O2 Sat by Pulse 98 Oximetry - Reevaluation(s) Reevaluation #1: 01/11/20 04:51 Medical record is reviewed Reevaluation #2: 01/11/20 04:51 Patient has resolution here of symptoms in the ER without treatment Reevaluation #3: 01/11/20 04:52 Spoke with patient regarding symptoms and findings, questions answered Reevaluation #4: 01/11/20 04:52 Patient feels good for discharge and follow-up Medical Decision Making - Medical Decision Making 54 female DF for evaluation, patient resents today for evaluation of tremors hypertension shaking anxiety, crying, no acute cause of findings here in the ER. Patient can be discharged home - Lab Data Result diagrams: 01/11/20 02:21 01/11/20 02:21 Lab Results 01/11/20 01/11/20 01/11/20 Range/Units 02:21 02:21 02:21 WBC 6.5 (3.8-10.6) k/uL RBC 4.65 (3.80-5.40) m/uL Hgb 14.6 (11.4-16.0) gm/dL Hct 42.7 (34.0-46.0) % MCV 91.8 (80.0-100.0) fL MCH 31.4 (25.0-35.0) pg MCHC 34.2 (31.0-37.0) g/dL RDW 12.5 (11.5-15.5) % Plt Count 248 (150-450) k/uL MPV 6.9 Neutrophils % 66 % Lymphocytes % 23 % Monocytes % 5 % Eosinophils % 3 % Basophils % 2 % Neutrophils # 4.3 (1.3-7.7) k/uL Lymphocytes # 1.5 (1.0-4.8) k/uL Monocytes # 0.3 (0-1.0) k/uL Eosinophils # 0.2 (0-0.7) k/uL Basophils # 0.1 (0-0.2) k/uL PT 10.0 (9.0-12.0) sec INR 1.0 (<1.2) APTT 23.9 (22.0-30.0) sec Sodium 137 (137-145) mmol/L Potassium 4.1 (3.5-5.1) mmol/L Chloride 107 (98-107) mmol/L Carbon Dioxide 25 (22-30) mmol/L Anion Gap 5 mmol/L BUN 14 (7-17) mg/dL Creatinine 0.72 (0.52-1.04) mg/dL Est GFR (CKD-EPI)AfAm >90 (>60 ml/min/1.73 sqM) Est GFR (CKD-EPI)NonAf >90 (>60 ml/min/1.73 sqM) Glucose 223 H (74-99) mg/dL Calcium 9.6 (8.4-10.2) mg/dL Phosphorus 3.1 (2.5-4.5) mg/dL Magnesium 1.9 (1.6-2.3) mg/dL Total Bilirubin 0.6 (0.2-1.3) mg/dL AST 26 (14-36) U/L ALT 16 (4-34) U/L Alkaline Phosphatase 81 (38-126) U/L Creatine Kinase 58 (30-135) U/L Troponin I (0.000-0.034) ng/mL NT-Pro-B Natriuret Pep pg/mL Total Protein 7.8 (6.3-8.2) g/dL Albumin 4.2 (3.5-5.0) g/dL Urine Opiates Screen (NotDetected) Ur Oxycodone Screen (NotDetected) Urine Methadone Screen (NotDetected) Ur Propoxyphene Screen (NotDetected) Ur Barbiturates Screen (NotDetected) U Tricyclic Antidepress (NotDetected) Ur Phencyclidine Scrn (NotDetected) Ur Amphetamines Screen (NotDetected) U Methamphetamines Scrn (NotDetected) U Benzodiazepines Scrn (NotDetected) Urine Cocaine Screen (NotDetected) U Marijuana (THC) Screen (NotDetected) 01/11/20 01/11/20 01/11/20 Range/Units 02:21 02:21 02:21 WBC (3.8-10.6) k/uL RBC (3.80-5.40) m/uL Hgb (11.4-16.0) gm/dL Hct (34.0-46.0) % MCV (80.0-100.0) fL MCH (25.0-35.0) pg MCHC (31.0-37.0) g/dL RDW (11.5-15.5) % Plt Count (150-450) k/uL MPV Neutrophils % % Lymphocytes % % Monocytes % % Eosinophils % % Basophils % % Neutrophils # (1.3-7.7) k/uL Lymphocytes # (1.0-4.8) k/uL Monocytes # (0-1.0) k/uL Eosinophils # (0-0.7) k/uL Basophils # (0-0.2) k/uL PT (9.0-12.0) sec INR (<1.2) APTT (22.0-30.0) sec Sodium (137-145) mmol/L Potassium (3.5-5.1) mmol/L Chloride (98-107) mmol/L Carbon Dioxide (22-30) mmol/L Anion Gap mmol/L BUN (7-17) mg/dL Creatinine (0.52-1.04) mg/dL Est GFR (CKD-EPI)AfAm (>60 ml/min/1.73 sqM) Est GFR (CKD-EPI)NonAf (>60 ml/min/1.73 sqM) Glucose (74-99) mg/dL Calcium (8.4-10.2) mg/dL Phosphorus (2.5-4.5) mg/dL Magnesium (1.6-2.3) mg/dL Total Bilirubin (0.2-1.3) mg/dL AST (14-36) U/L ALT (4-34) U/L Alkaline Phosphatase (38-126) U/L Creatine Kinase (30-135) U/L Troponin I <0.012 (0.000-0.034) ng/mL NT-Pro-B Natriuret Pep 79 pg/mL Total Protein (6.3-8.2) g/dL Albumin (3.5-5.0) g/dL Urine Opiates Screen Not Detected (NotDetected) Ur Oxycodone Screen Not Detected (NotDetected) Urine Methadone Screen Not Detected (NotDetected) Ur Propoxyphene Screen Not Detected (NotDetected) Ur Barbiturates Screen Not Detected (NotDetected) U Tricyclic Antidepress Not Detected (NotDetected) Ur Phencyclidine Scrn Not Detected (NotDetected) Ur Amphetamines Screen Not Detected (NotDetected) U Methamphetamines Scrn Not Detected (NotDetected) U Benzodiazepines Scrn Detected H (NotDetected) Urine Cocaine Screen Not Detected (NotDetected) U Marijuana (THC) Screen Not Detected (NotDetected) - EKG Data -: EKG Interpreted by Me (EKG is sinus rhythm 75 [place] 170 QRS 72 QTC 444) - Radiology Data Radiology results: report reviewed (CT brain and chest abdomen and pelvis negative for acute disease), image reviewed Disposition Clinical Impression: Tremor, Anxiety, Hypertension Disposition: HOME SELF-CARE Condition: Good Instructions (If sedation given, give patient instructions): Hypertension (ED), Tremors (ED) Is patient prescribed a controlled substance at d/c from ED?: No Referrals: Fred Schwartz DO [Primary Care Provider] - 1-2 days
[2020-01-11 02:41] LABS: Basophils # (A) 0.1 k/uL (0-0.2); Basophils % (A) 2 %; Eosinophils # (A) 0.2 k/uL (0-0.7); Eosinophils % (A) 3 %; HCT 42.7 % (34.0-46.0); HGB 14.6 gm/dL (11.4-16.0); Lymphocytes # (A) 1.5 k/uL (1.0-4.8); Lymphocytes % (A) 23 %; MCH 31.4 pg (25.0-35.0); MCHC 34.2 g/dL (31.0-37.0); MCV 91.8 fL (80.0-100.0); Mean Platelet Volume 6.9; Monocytes # (A) 0.3 k/uL (0-1.0); Monocytes % (A) 5 %; Neutrophils # (A) 4.3 k/uL (1.3-7.7); Neutrophils % (A) 66 %; Platelet Count 248 k/uL (150-450); RBC 4.65 m/uL (3.80-5.40); RDW 12.5 % (11.5-15.5); WBC 6.5 k/uL (3.8-10.6)
[2020-01-11 02:50] LABS: Partial Thromboplastin Time 23.9 sec (22.0-30.0)
[2020-01-11 03:11] LABS: Amphetamine Screen,Urine Not Detected (NotDetected); Barbiturate Screen,Urine Not Detected (NotDetected); Benzodiazepines Screen,Urine Detected (NotDetected); Cocaine Screen,Urine Not Detected (NotDetected); Methadone Screen, Urine Not Detected (NotDetected); Opiate Screen,Urine Not Detected (NotDetected); Oxycodone Screen, Urine Not Detected (NotDetected); Phencyclidine Screen,Urine Not Detected (NotDetected); Tricyclic Antidepressant,Urine Not Detected (NotDetected); Urn Cannabinoid Scrn Not Detected (NotDetected)
[2020-01-11 03:13] LABS: ALT 16 U/L (4-34); AST 26 U/L (14-36); African American GFR (CKD) >90 (>60 ml/min/1.73 sqM); Albumin 4.2 g/dL (3.5-5.0); Alkaline Phosphatase 81 U/L (38-126); Anion Gap 5 mmol/L; Blood Urea Nitrogen 14 mg/dL (7-17); Calcium 9.6 mg/dL (8.4-10.2); Carbon Dioxide 25 mmol/L (22-30); Chloride 107 mmol/L (98-107); Creatine Kinase 58 U/L (30-135); Glucose 223 mg/dL (74-99); Magnesium 1.9 mg/dL (1.6-2.3); Non-African American GFR(CKD) >90 (>60 ml/min/1.73 sqM); Phosphorus 3.1 mg/dL (2.5-4.5); Potassium 4.1 mmol/L (3.5-5.1); Sodium 137 mmol/L (137-145); Total Bilirubin 0.6 mg/dL (0.2-1.3); Total Protein 7.8 g/dL (6.3-8.2)
--- NOTE | 2020-01-11 03:52 | CT ---
EXAM: CT Head Without Intravenous Contrast CLINICAL HISTORY: ITS.REASON CT Reason: weak TECHNIQUE: Axial computed tomography images of the head/brain without intravenous contrast. CTDI is 21.15 mGy and DLP is 1134.4 mGy-cm. This CT exam was performed using one or more of the following dose reduction techniques: automated exposure control, adjustment of the mA and/or kV according to patient size, and/or use of iterative reconstruction technique. COMPARISON: 12/06/2012 FINDINGS: Brain: No acute intracranial hemorrhage. Kenney-white differentiation is preserved throughout the cerebral hemispheres. Posterior fossa is symmetric. There is moderate intracranial internal carotid artery calcifications. No mass-effect or vasogenic edema. Ventricles: Unremarkable. No ventriculomegaly. Basilar cisterns are widely patent. Bones/joints: Unremarkable. No acute fracture. Soft tissues: Unremarkable. Sinuses: Unremarkable as visualized. No acute sinusitis. Mastoid air cells: Unremarkable as visualized. No mastoid effusion. IMPRESSION: No acute intracranial process.
--- NOTE | 2020-01-11 04:10 | CT ---
EXAM: CT Chest With Intravenous Contrast CLINICAL HISTORY: ITS.REASON CT Reason: weak TECHNIQUE: Axial computed tomography images of the chest with intravenous contrast. CTDI is 21.15 mGy and DLP is 519.2 mGy-cm. This CT exam was performed using one or more of the following dose reduction techniques: automated exposure control, adjustment of the mA and/or kV according to patient size, and/or use of iterative reconstruction technique. COMPARISON: none available FINDINGS: Lungs: Unremarkable. No mass. No consolidation. Pleural space: Unremarkable. No pneumothorax. No significant effusion. Heart: Unremarkable. No cardiomegaly. No significant pericardial effusion. Bones/joints: Unremarkable. No acute fracture. No dislocation. Soft tissues: Unremarkable. Vasculature: Unremarkable. No thoracic aortic aneurysm. Lymph nodes: Unremarkable. No enlarged lymph nodes. IMPRESSION: No acute intrathoracic process. EXAM: CT Abdomen and Pelvis With Intravenous Contrast CLINICAL HISTORY: ITS.REASON CT Reason: weak TECHNIQUE: Axial computed tomography images of the abdomen and pelvis with intravenous contrast. CTDI is 21.15 mGy and DLP is 519.2 mGy-cm. This CT exam was performed using one or more of the following dose reduction techniques: automated exposure control, adjustment of the mA and/or kV according to patient size, and/or use of iterative reconstruction technique. COMPARISON: 12/23/2015 FINDINGS: Lung bases: For intra-thoracic findings, see separate chest CT performed concurrently. ABDOMEN: Liver: Unremarkable. No mass. Gallbladder and bile ducts: Unremarkable. No calcified stones. No ductal dilation. Pancreas: Unremarkable. No mass. No ductal dilation. Spleen: Accessory splenules.. No splenomegaly. Adrenals: Unremarkable. No mass. Kidneys and ureters: Symmetric renal parenchymal enhancement. Nonobstructing bilateral renal stones, 5 on the left, 2 on the right, measuring up to 4 mm on the left and 4mm on the right. No solid mass. No hydronephrosis or perinephric stranding. Stomach and bowel: Small hiatal hernia. No obstruction. No mucosal thickening. Mild fecal burden throughout the colon. Normal appendix. PELVIS: Appendix: No findings to suggest acute appendicitis. Bladder: Unremarkable. No mass. Reproductive: Unremarkable as visualized. Bilateral tubal ligation clips in place. ABDOMEN and PELVIS: Intraperitoneal space: Unremarkable. No free air. No significant fluid collection. Bones/joints: No acute fracture. No dislocation. Soft tissues: Unremarkable. Vasculature: Unremarkable. No abdominal aortic aneurysm. Lymph nodes: Unremarkable. No enlarged lymph nodes. IMPRESSION: 1. No acute intra-abdominal process. 2. Small hiatal hernia. No evidence of bowel obstruction. 3. Multiple bilateral nonobstructing renal calculi measuring up to 4 mm.
[2020-01-11 04:58] VITALS: BP 151/85; PULSE 75; RESP 14; TEMP 97.9
== END 2020-01-11 04:55 | disposition home or self-care (01) ==
LOC: EC 01:46
DX: I10 Essential (primary) hypertension (principal); F41.9 Anxiety disorder, unspecified; R25.1 Tremor, unspecified; E11.9 Type 2 diabetes mellitus without complications; E78.5 Hyperlipidemia, unspecified; Z79.4 Long term (current) use of insulin; Z79.899 Other long term (current) drug therapy; Z88.5 Allergy status to narcotic agent; Z88.2 Allergy status to sulfonamides; Z88.0 Allergy status to penicillin; Z91.048 Other nonmedicinal substance allergy status
CPT/HCPCS: 36415; 93005; 83880; 80053; 82550; 83735; 84100; 84484; 85025; 85610; 85730; 80306; 70450; 71260; 74177; 96360; 99284; Q9967

== ENCOUNTER 2020-03-24 07:05 | Emergency (ER) | payer BC ==
[2020-03-24] MEDS ORDERED: SODIUM CHLORIDE 0.9% 500 ML 500 ML IV STA (07:31)
[2020-03-24] MEDS ORDERED: SODIUM CHLORIDE 0.9% 1,000 ML IV STA (07:31)
--- NOTE | 2020-03-24 07:44 | ED ---
General Adult HPI - General Chief complaint: Dizziness Stated complaint: diabetic issue Time Seen by Provider: 03/24/20 07:15 Source: patient, RN notes reviewed Mode of arrival: ambulatory Limitations: no limitations - History of Present Illness Initial comments: This is a 54-year-old female presents emergency Department with chief complaint of hyperglycemia. Patient states her blood sugars from elevated or last few days. Patient states that she's also been dealing with hypertension and palpitations. Patient has been evaluated in the emergency room and by PCP she was placed on Xanax as he felt it was related to anxiety as she gets very anxious, has hyperventilation when she has he symptoms. Patient states that she takes Xanax 0.5 mg. She states occasionally helps but usually doesn't. She denies any chest pain denies any headache or blurred vision or focal weakness she's had intermittent nausea. Patient is on insulin pump and states that she is on glucose monitor system. Patient denies any dysuria, hematuria, leg pain leg swelling no fevers chills no cough chest congestion. - Related Data Home Medications Medication Instructions Recorded Confirmed Losartan Potassium [Cozaar] 100 mg PO HS 09/12/14 03/24/20 amLODIPine [Norvasc] 2.5 mg PO HS 09/12/14 03/24/20 Cetirizine HCl [Zyrtec] 10 mg PO DAILY PRN 12/17/19 03/24/20 Insulin Aspart (For Pump) [NovoLOG 0.01 unit SQ-PUMP CONTINUOUS 12/17/19 03/24/20 (For Pump)] Omeprazole 20 mg PO DAILY PRN 12/17/19 03/24/20 ALPRAZolam [Xanax] 0.5 mg PO BID PRN 03/24/20 03/24/20 Biest Hormone Cream 1 applic TOPICAL BID 03/24/20 03/24/20 atenoloL [Atenolol] 25 mg PO HS 03/24/20 03/24/20 Allergies Allergy/AdvReac Type Severity Reaction Status Date / Time adhesive Allergy Rash/Hives Verified 03/24/20 07:53 Penicillins Allergy Rash/Hives Verified 03/24/20 07:53 codeine AdvReac Chest Pain Verified 03/24/20 07:53 Sulfa (Sulfonamide AdvReac Hallucinati Verified 03/24/20 07:53 Antibiotics) ons Review of Systems ROS Statement: Those systems with pertinent positive or pertinent negative responses have been documented in the HPI. ROS Other: All systems not noted in ROS Statement are negative. Past Medical History Past Medical History: Diabetes Mellitus, Hyperlipidemia, Hypertension, Skin Disorder Additional Past Medical History / Comment(s): hx of intermittant tachycardia, childhood asthma, ? eczema, has patches currently on back, hormone replacement therapy History of Any Multi-Drug Resistant Organisms: None Reported Past Surgical History: Orthopedic Surgery, Uterine Ablation Additional Past Surgical History / Comment(s): EGD, trigger finger; R Arm L Leg; kervin eye surgery for hemorhage Past Anesthesia/Blood Transfusion Reactions: Motion Sickness, Postoperative Nausea & Vomiting (PONV) Past Psychological History: Anxiety Smoking Status: Never smoker Past Alcohol Use History: Occasional Past Drug Use History: None Reported - Past Family History Father Family Medical History: Diabetes Mellitus Mother Family Medical History: Diabetes Mellitus, Hypertension General Exam Limitations: no limitations General appearance: alert, in no apparent distress Head exam: Present: atraumatic, normocephalic, normal inspection Eye exam: Present: normal appearance, PERRL, EOMI. Absent: scleral icterus, conjunctival injection, periorbital swelling ENT exam: Present: normal exam, normal oropharynx, mucous membranes moist Neck exam: Present: normal inspection, full ROM. Absent: tenderness, meningis mus, lymphadenopathy Respiratory exam: Present: normal lung sounds bilaterally. Absent: respiratory distress, wheezes, rales, rhonchi, stridor Cardiovascular Exam: Present: regular rate, normal rhythm, normal heart sounds. Absent: systolic murmur, diastolic murmur, rubs, gallop, clicks GI/Abdominal exam: Present: soft, normal bowel sounds. Absent: distended, tenderness, guarding, rebound, rigid Neurological exam: Present: alert, oriented X3, CN II-XII intact Skin exam: Present: warm, dry, intact, normal color. Absent: rash Course Vital Signs 03/24/20 03/24/20 07:10 07:49 Temperature 98.5 F 98.2 F Pulse Rate 89 81 Respiratory 18 16 Rate Blood Pressure 138/82 152/80 O2 Sat by Pulse 97 97 Oximetry - Reevaluation(s) Reevaluation #1: 03/24/20 08:49 I was called the room secondary patient feeling very anxious I did into the room and she was having a panic attack. Patient was given Ativan at this time she was updated on results. Patient did have improvement. 03/24/20 08:50 EKG Findings - EKG Comments: EKG Findings:: EKG plan 7:25 normal sinus rhythm rate of 86 ID 182 QRS 64 QT/QTC 370/[address] elevation or depression. - EKG Results: EKG: interpreted by NOEMI Medical Decision Making - Medical Decision Making 54-year-old female presented for hyperglycemia labs reviewed patient has mild hyperglycemia, patient is on insulin pump. There is no evidence of DKA, no significant ketonuria. Patient was hydrated, given Ativan for anxiety which has helped. I do feel symptoms are related to underlying anxiety issues she will be provided psychiatric follow-up as she is not suicidal or homicidal patient be discharged in stable condition. - Lab Data Result diagrams: 03/24/20 07:36 03/24/20 07:36 Lab Results 03/24/20 03/24/20 03/24/20 Range/Units 07:36 07:36 07:36 WBC 8.2 (3.8-10.6) k/uL RBC 4.48 (3.80-5.40) m/uL Hgb 13.9 (11.4-16.0) gm/dL Hct 40.7 (34.0-46.0) % MCV 90.7 (80.0-100.0) fL MCH 31.1 (25.0-35.0) pg MCHC 34.3 (31.0-37.0) g/dL RDW 12.7 (11.5-15.5) % Plt Count 260 (150-450) k/uL MPV 7.0 Neutrophils % 76 % Lymphocytes % 16 % Monocytes % 4 % Eosinophils % 1 % Basophils % 1 % Neutrophils # 6.2 (1.3-7.7) k/uL Lymphocytes # 1.3 (1.0-4.8) k/uL Monocytes # 0.4 (0-1.0) k/uL Eosinophils # 0.1 (0-0.7) k/uL Basophils # 0.1 (0-0.2) k/uL Sodium (137-145) mmol/L Potassium (3.5-5.1) mmol/L Chloride (98-107) mmol/L Carbon Dioxide (22-30) mmol/L Anion Gap mmol/L BUN (7-17) mg/dL Creatinine (0.52-1.04) mg/dL Est GFR (CKD-EPI)AfAm (>60 ml/min/1.73 sqM) Est GFR (CKD-EPI)NonAf (>60 ml/min/1.73 sqM) Glucose (74-99) mg/dL Plasma Lactic Acid Chente 0.9 (0.7-2.0) mmol/L Calcium (8.4-10.2) mg/dL Total Bilirubin (0.2-1.3) mg/dL AST (14-36) U/L ALT (4-34) U/L Alkaline Phosphatase (38-126) U/L Troponin I (0.000-0.034) ng/mL Total Protein (6.3-8.2) g/dL Albumin (3.5-5.0) g/dL Urine Color Light Yellow Urine Appearance Clear (Clear) Urine pH 6.0 (5.0-8.0) Ur Specific [place] 1.005 (1.001-1.035) Urine Protein Negative (Negative) Urine Glucose (UA) Trace H (Negative) Urine Ketones Negative (Negative) Urine Blood Negative (Negative) Urine Nitrite Negative (Negative) Urine Bilirubin Negative (Negative) Urine Urobilinogen <2.0 (<2.0) mg/dL Ur Leukocyte Esterase Negative (Negative) Acetone, Qual (Negative) 03/24/20 03/24/20 Range/Units 07:36 07:36 WBC (3.8-10.6) k/uL RBC (3.80-5.40) m/uL Hgb (11.4-16.0) gm/dL Hct (34.0-46.0) % MCV (80.0-100.0) fL MCH (25.0-35.0) pg MCHC (31.0-37.0) g/dL RDW (11.5-15.5) % Plt Count (150-450) k/uL MPV Neutrophils % % Lymphocytes % % Monocytes % % Eosinophils % % Basophils % % Neutrophils # (1.3-7.7) k/uL Lymphocytes # (1.0-4.8) k/uL Monocytes # (0-1.0) k/uL Eosinophils # (0-0.7) k/uL Basophils # (0-0.2) k/uL Sodium 139 (137-145) mmol/L Potassium 3.9 (3.5-5.1) mmol/L Chloride 106 (98-107) mmol/L Carbon Dioxide 26 (22-30) mmol/L Anion Gap 7 mmol/L BUN 14 (7-17) mg/dL Creatinine 0.63 (0.52-1.04) mg/dL Est GFR (CKD-EPI)AfAm >90 (>60 ml/min/1.73 sqM) Est GFR (CKD-EPI)NonAf >90 (>60 ml/min/1.73 sqM) Glucose 204 H (74-99) mg/dL Plasma Lactic Acid Chente (0.7-2.0) mmol/L Calcium 9.5 (8.4-10.2) mg/dL Total Bilirubin 0.7 (0.2-1.3) mg/dL AST 21 (14-36) U/L ALT 16 (4-34) U/L Alkaline Phosphatase 79 (38-126) U/L Troponin I <0.012 (0.000-0.034) ng/mL Total Protein 7.5 (6.3-8.2) g/dL Albumin 3.9 (3.5-5.0) g/dL Urine Color Urine Appearance (Clear) Urine pH (5.0-8.0) Ur Specific [place] (1.001-1.035) Urine Protein (Negative) Urine Glucose (UA) (Negative) Urine Ketones (Negative) Urine Blood (Negative) Urine Nitrite (Negative) Urine Bilirubin (Negative) Urine Urobilinogen (<2.0) mg/dL Ur Leukocyte Esterase (Negative) Acetone, Qual Negative (Negative) Disposition Clinical Impression: Hyperglycemia, Anxiety Disposition: HOME SELF-CARE Condition: Stable Instructions (If sedation given, give patient instructions): Generalized Anxiety Disorder (ED) Additional Instructions: Please return to the Emergency Department if symptoms worsen or any other concerns. Is patient prescribed a controlled substance at d/c from ED?: No Referrals: Fred Schwartz DO [Primary Care Provider] - 1-[address] [facility] [NON-STAFF] - 1-2 days Time of Disposition: 08:52
[2020-03-24 08:02] LABS: Basophils # (A) 0.1 k/uL (0-0.2); Basophils % (A) 1 %; Eosinophils # (A) 0.1 k/uL (0-0.7); Eosinophils % (A) 1 %; HCT 40.7 % (34.0-46.0); HGB 13.9 gm/dL (11.4-16.0); Lymphocytes # (A) 1.3 k/uL (1.0-4.8); Lymphocytes % (A) 16 %; MCH 31.1 pg (25.0-35.0); MCHC 34.3 g/dL (31.0-37.0); MCV 90.7 fL (80.0-100.0); Monocytes # (A) 0.4 k/uL (0-1.0); Monocytes % (A) 4 %; Neutrophils # (A) 6.2 k/uL (1.3-7.7); Neutrophils % (A) 76 %; Platelet Count 260 k/uL (150-450); RBC 4.48 m/uL (3.80-5.40); RDW 12.7 % (11.5-15.5); WBC 8.2 k/uL (3.8-10.6)
[2020-03-24 08:06] LABS: Appearance,Urine Clear (Clear); Bilirubin,Urine Negative (Negative); Blood,Urine Negative (Negative); Color,Urine Light Yellow; Glucose,Urine (UA) Trace (Negative); Ketones,Urine Negative (Negative); Leukocyte Esterase,Urine Negative (Negative); Nitrite,Urine Negative (Negative); Protein,Urine Negative (Negative); Specific Gravity,Urine 1.005 (1.001-1.035); Urobilinogen,Urine <2.0 mg/dL (<2.0)
[2020-03-24 08:16] LABS: ALT 16 U/L (4-34); AST 21 U/L (14-36); African American GFR (CKD) >90 (>60 ml/min/1.73 sqM); Albumin 3.9 g/dL (3.5-5.0); Alkaline Phosphatase 79 U/L (38-126); Anion Gap 7 mmol/L; Blood Urea Nitrogen 14 mg/dL (7-17); Calcium 9.5 mg/dL (8.4-10.2); Carbon Dioxide 26 mmol/L (22-30); Chloride 106 mmol/L (98-107); Glucose 204 mg/dL (74-99); Non-African American GFR(CKD) >90 (>60 ml/min/1.73 sqM); Potassium 3.9 mmol/L (3.5-5.1); Sodium 139 mmol/L (137-145); Total Bilirubin 0.7 mg/dL (0.2-1.3); Total Protein 7.5 g/dL (6.3-8.2)
--- NOTE | 2020-03-24 08:18 | XR ---
EXAMINATION TYPE: XR chest 2V DATE OF EXAM: 03/24/2020 COMPARISON: Chest x-ray December 17, 2019 HISTORY: Dizziness and weakness. TECHNIQUE: Frontal and lateral views of the chest are obtained. FINDINGS: There is no new suspicious focal air space opacity, pleural effusion, or pneumothorax seen . The cardiac silhouette size remains within normal limits. Overlying EKG leads. The osseous struc tures are intact. IMPRESSION: No acute cardiopulmonary process. No significant change from prior.
[2020-03-24] MEDS ORDERED: LORazepam 2 MG/ML INJ IV STA (08:45)
[2020-03-24 08:57] VITALS: BP 178/89; PULSE 89; RESP 18; TEMP 98.1
== END 2020-03-24 09:36 | disposition home or self-care (01) ==
LOC: EC 07:05
DX: E11.65 Type 2 diabetes mellitus with hyperglycemia (principal); F41.9 Anxiety disorder, unspecified; E78.5 Hyperlipidemia, unspecified; I10 Essential (primary) hypertension; Z79.899 Other long term (current) drug therapy; Z96.41 Presence of insulin pump (external) (internal); Z88.0 Allergy status to penicillin; Z88.2 Allergy status to sulfonamides; Z88.5 Allergy status to narcotic agent; Z91.048 Other nonmedicinal substance allergy status; Z83.3 Family history of diabetes mellitus
CPT/HCPCS: 36415; 93005; 80053; 82009; 83605; 84484; 85025; 81003; 82306; 71046; 99284; 96374; 96361; J2060

== ENCOUNTER → 2020-04-25 | Outpatient (CLI) | payer BC ==
--- NOTE | 2020-04-28 10:30 | MM ---
Reason for exam: additional evaluation requested from prior study. Last mammogram was performed 1 year and 5 months ago. History: Patient is nulliparous. Took other hormone for 3 months beginning at age 54. Physical Findings: Nurse Summary: 1.5cm nodule in the left breast at 2 o'clock (nurse db). MG 3D Diag Mammo W/Cad CHRISTI Bilateral CC and MLO view(s) were taken. Prior study comparison: November 20, 2018, bilateral MG screening mammo w CAD. January 26, 2016, bilateral MG screening mammo w CAD. The breast tissue is heterogeneously dense. This may lower the sensitivity of mammography. There is no discrete abnormality including area of concern palpable area. Focal asymmetry upper outer quadrant, no discrete mass. These results were verbally communicated with the patient and result sheet given to the patient on 04/25/20. ASSESSMENT: Benign, BI-RAD 2 RECOMMENDATION: Ultrasound of the left breast in 1 year. (palpable, upper outer quadrant)
--- NOTE | 2020-04-28 10:33 | USB ---
Reason for exam: additional evaluation requested from abnormal screening. History: Patient is nulliparous. Took other hormone for 3 months beginning at age 54. US Breast LT Technologist: Adriane Shi Left complete breast ultrasound includes all four quadrants, the retroareolar region and axilla. Finding demonstrates a 1.7 x 0.6 x 0.7cm irregular lesion at 3 o'clock, may have shadowing. These results were verbally communicated with the patient and result sheet given to the patient on 04/25/20. ASSESSMENT: Suspicious, BI-RAD 4 RECOMMENDATION: Ultrasound core biopsy of the left breast. Manage on a clinical basis with regard to palpable. Called Dr. Cota's office with mammographic findings and has scheduled an appointment for the patient for 05/22/20 at 2:[address] Wellington. Biopsy scheduled for 05/23/20 at 10:30. PRELIMINARY REPORT CALLED AND FAXED TO DR. WELLINGTON ON 04/28/20.
== END ==
LOC: RADMAMWWP 13:37
PROVIDERS: ATTEND Obstetrics & Gynecology
DX: R92.2 Inconclusive mammogram (principal); N64.59 Other signs and symptoms in breast
CPT/HCPCS: 77062; 77066

== ENCOUNTER → 2020-05-22 | Outpatient (CLI) | payer BC ==
[2020-05-22 14:46] VITALS: BP 143/82; PULSE 78; RESP 18; TEMP 98.4
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
== END ==
LOC: WWCWWP 14:00
PROVIDERS: ATTEND Surgery
DX: N63.42 Unspecified lump in left breast, subareolar (principal); N60.11 Diffuse cystic mastopathy of right breast; F32.9 Major depressive disorder, single episode, unspecified; N20.0 Calculus of kidney; J45.909 Unspecified asthma, uncomplicated; E11.9 Type 2 diabetes mellitus without complications; I10 Essential (primary) hypertension; E78.5 Hyperlipidemia, unspecified

== ENCOUNTER → 2020-05-23 | Day surgery (SDC) | payer BC ==
[2020-05-23 09:53] VITALS: RESP 16
[2020-05-23 11:49] VITALS: BP 146/81; PULSE 75; TEMP 97.7
--- NOTE | 2020-05-23 13:35 | USB ---
EXAMINATION TYPE: US biopsy breast VAD LT, MG post procedure diagnostic mammo LT wo CAD DATE OF EXAM: 05/23/2020 CLINICAL HISTORY: 54-year-old female with physician and nurse palpated abnormality in the 3:00 left breast, R92.8 Abnormal Mammogram. TECHNIQUE: Ultrasound guided core biopsy of the left breast. COMPARISON: 04/25/2020 FINDINGS: The procedure of ultrasound guided core biopsy was explained to the patient. Benefits, alternatives, and risks were discussed. An informed consent was then obtained. The dense island of fibroglandular tissue at 3:00 in the left breast is redemonstrated. Along the margin of the dense tissue, the 1.0 cm hypoechoic area with shadowing is targeted for biopsy. The patient was placed in supine positioning for imaging and for the procedure. The overlying skin was prepped and draped in usual sterile fashion. Lidocaine was used as anesthetic into the skin and subcutaneous tissue up to area of concern in the 3:00 left breast Under ultrasound guidance, a 30-gauge vacuum-assisted mammotome Elite biopsy gun was used to obtain 6 core samples. Following this, a ribbon clip was left at the site of biopsy. The patient tolerated the procedure well without any immediate complication. The patient was kept in the radiology department for short stay after the procedure and then discharged home in stable condition. Post procedure mammogram shows the clip at the 3:00 position. IMPRESSION: Successful, uncomplicated ultrasound guided core biopsy of hypoechoic area along the margin of a dense island of tissue in the 3:00 left breast; full pathology results to follow. If benign results, 6 month follow-up ultrasound can be performed. Pathology Results: Benign LEFT BREAST, 3:00 POSITION, CORE BIOPSY: Hypocellular stromal fibrosis with focal fibrocystic change, columnar cell change, periductal chronic inflammation and focal microcalcification with florid usual ductal hyperplasia. Negative for in situ or invasive malignancy. Recommendation Follow up mammogram of the left breast in 6 months. OSWALDO
== END ==
LOC: RADUSWWP 09:37
PROVIDERS: ATTEND Surgery
DX: N60.12 Diffuse cystic mastopathy of left breast (principal); N61.0 Mastitis without abscess
CPT/HCPCS: 88305; 77065; 19083; A4648; J2001

== ENCOUNTER 2020-06-04 04:47 | Emergency (ER) | payer BC ==
[2020-06-04 04:54] VITALS: RESP 16; TEMP 98.5
[2020-06-04] MEDS ORDERED: SODIUM CHLORIDE 0.9% 500 ML 500 ML IV STA (05:56)
[2020-06-04] MEDS ORDERED: ONDANSETRON 4 MG/2 ML VIAL IVP STA (05:56)
[2020-06-04] MEDS ORDERED: SODIUM CHLORIDE 0.9% 1,000 ML IV STA ×2 (05:56)
--- NOTE | 2020-06-04 06:06 | ED ---
Nausea/Vomiting/Diarrhea HPI - General Chief complaint: Nausea/Vomiting/Diarrhea Stated complaint: Nausea Time Seen by Provider: 06/04/20 05:56 Source: patient, EMS Mode of arrival: EMS Limitations: no limitations - Related Data Home Medications Medication Instructions Recorded Confirmed Losartan Potassium [Cozaar] 100 mg PO HS 09/12/14 05/23/20 amLODIPine [Norvasc] 2.5 mg PO HS 09/12/14 05/23/20 Cetirizine HCl [Zyrtec] 10 mg PO DAILY PRN 12/17/19 05/23/20 Insulin Aspart (For Pump) [NovoLOG 0.01 unit SQ-PUMP CONTINUOUS 12/17/19 05/23/20 (For Pump)] Omeprazole 20 mg PO DAILY PRN 12/17/19 05/23/20 ALPRAZolam [Xanax] 0.5 mg PO BID PRN 03/24/20 05/23/20 Biest Hormone Cream 1 applic TOPICAL BID 03/24/20 05/23/20 atenoloL [Atenolol] 25 mg PO HS 03/24/20 05/23/20 Cholecalciferol (Vitamin D3) 125 mcg PO DAILY 05/06/20 05/23/20 [Vitamin D3 (5000 Iu)] Escitalopram [Lexapro] 10 mg PO HS 05/06/20 05/23/20 Clobetasol Propionate/Emoll 1 applic TOPICAL DAILY PRN 05/22/20 05/23/20 [Clobetasol Emulsion 0.05% Foam] Ibuprofen [Advil] 200 mg PO Q8HR PRN 05/22/20 05/23/20 Allergies Allergy/AdvReac Type Severity Reaction Status Date / Time adhesive Allergy Rash/Hives Verified 05/23/20 09:44 Penicillins Allergy Rash/Hives Verified 05/23/20 09:44 codeine AdvReac Chest Pain Verified 05/23/20 09:44 Sulfa (Sulfonamide AdvReac Hallucinati Verified 05/23/20 09:44 Antibiotics) ons Review of Systems ROS Statement: Those systems with pertinent positive or pertinent negative responses have been documented in the HPI. ROS Other: All systems not noted in ROS Statement are negative. Past Medical History Past Medical History: Asthma, Diabetes Mellitus, Hyperlipidemia, Hypertension, Skin Disorder Additional Past Medical History / Comment(s): hx of intermittant tachycardia, childhood asthma, eczema, Type 1 DM History of Any Multi-Drug Resistant Organisms: None Reported Past Surgical History: Orthopedic Surgery, Uterine Ablation Additional Past Surgical History / Comment(s): EGD, colonoscopy, kervin trigger finger, carpal tunnel, L Arm, R Leg, kervin eye surgery for hemorhage Past Anesthesia/Blood Transfusion Reactions: Motion Sickness, Postoperative Nausea & Vomiting (PONV) Past Psychological History: Anxiety Smoking Status: Never smoker Past Alcohol Use History: None Reported Past Drug Use History: None Reported - Past Family History Father Family Medical History: Diabetes Mellitus Mother Family Medical History: Diabetes Mellitus, Hypertension General Exam Limitations: no limitations Course Vital Signs 06/04/20 04:48 Temperature 98.5 F Pulse Rate 72 Respiratory 16 Rate Blood Pressure 147/67 O2 Sat by Pulse 97 Oximetry Medical Decision Making - Lab Data Result diagrams: 06/04/20 05:57 06/04/20 05:57 Lab Results 06/04/20 06/04/20 Range/Units 05:57 05:57 WBC 1.9 L (3.8-10.6) k/uL RBC 4.78 (3.80-5.40) m/uL Hgb 14.8 (11.4-16.0) gm/dL Hct 42.0 (34.0-46.0) % MCV 87.9 (80.0-100.0) fL MCH 30.9 (25.0-35.0) pg MCHC 35.2 (31.0-37.0) g/dL RDW 12.7 (11.5-15.5) % Plt Count 164 (150-450) k/uL MPV 7.0 Neutrophils % 71 % Lymphocytes % 15 % Monocytes % 10 % Eosinophils % 1 % Basophils % 1 % Neutrophils # 1.3 (1.3-7.7) k/uL Lymphocytes # 0.3 L (1.0-4.8) k/uL Monocytes # 0.2 (0-1.0) k/uL Eosinophils # 0.0 (0-0.7) k/uL Basophils # 0.0 (0-0.2) k/uL Sodium 135 L (137-145) mmol/L Potassium 3.8 (3.5-5.1) mmol/L Chloride 103 (98-107) mmol/L Carbon Dioxide 25 (22-30) mmol/L Anion Gap 7 mmol/L BUN 8 (7-17) mg/dL Creatinine 0.72 (0.52-1.04) mg/dL Est GFR (CKD-EPI)AfAm >90 (>60 ml/min/1.73 sqM) Est GFR (CKD-EPI)NonAf >90 (>60 ml/min/1.73 sqM) Glucose 186 H (74-99) mg/dL Calcium 8.8 (8.4-10.2) mg/dL Phosphorus 2.8 (2.5-4.5) mg/dL Magnesium 1.6 (1.6-2.3) mg/dL Total Bilirubin 0.6 (0.2-1.3) mg/dL AST 36 (14-36) U/L ALT 23 (4-34) U/L Alkaline Phosphatase 70 (38-126) U/L Total Protein 7.7 (6.3-8.2) g/dL Albumin 4.1 (3.5-5.0) g/dL - EKG Data -: EKG Interpreted by Me (EKG shows sinus rhythm 70 [place] 158 QRS 70 QTC 432) Disposition Clinical Impression: Dehydration, Gastroenteritis Disposition: HOME SELF-CARE Condition: Good Instructions (If sedation given, give patient instructions): Acute Nausea and Vomiting (ED) Is patient prescribed a controlled substance at d/c from ED?: No Referrals: Frde Schwartz DO [Primary Care Provider] - 1-2 days
[2020-06-04 06:24] LABS: Basophils % (A) 1 %; Eosinophils % (A) 1 %; HGB 14.8 gm/dL (11.4-16.0); Lymphocytes # (A) 0.3 k/uL (1.0-4.8); Lymphocytes % (A) 15 %; MCH 30.9 pg (25.0-35.0); MCHC 35.2 g/dL (31.0-37.0); MCV 87.9 fL (80.0-100.0); Monocytes # (A) 0.2 k/uL (0-1.0); Monocytes % (A) 10 %; Neutrophils # (A) 1.3 k/uL (1.3-7.7); Neutrophils % (A) 71 %; Platelet Count 164 k/uL (150-450); RBC 4.78 m/uL (3.80-5.40); RDW 12.7 % (11.5-15.5); WBC 1.9 k/uL (3.8-10.6)
[2020-06-04 06:42] LABS: ALT 23 U/L (4-34); AST 36 U/L (14-36); African American GFR (CKD) >90 (>60 ml/min/1.73 sqM); Albumin 4.1 g/dL (3.5-5.0); Alkaline Phosphatase 70 U/L (38-126); Anion Gap 7 mmol/L; Blood Urea Nitrogen 8 mg/dL (7-17); Calcium 8.8 mg/dL (8.4-10.2); Carbon Dioxide 25 mmol/L (22-30); Chloride 103 mmol/L (98-107); Glucose 186 mg/dL (74-99); Magnesium 1.6 mg/dL (1.6-2.3); Non-African American GFR(CKD) >90 (>60 ml/min/1.73 sqM); Phosphorus 2.8 mg/dL (2.5-4.5); Potassium 3.8 mmol/L (3.5-5.1); Sodium 135 mmol/L (137-145); Total Bilirubin 0.6 mg/dL (0.2-1.3); Total Protein 7.7 g/dL (6.3-8.2)
[2020-06-04 06:46] LABS: Appearance,Urine Cloudy (Clear); Bilirubin,Urine Negative (Negative); Blood,Urine Negative (Negative); Color,Urine Light Yellow; Glucose,Urine (UA) Negative (Negative); Ketones,Urine 2+ (Negative); Leukocyte Esterase,Urine Negative (Negative); Mucus,Urine Rare /hpf; Nitrite,Urine Negative (Negative); Protein,Urine 1+ (Negative); RBC,Urine <1 /hpf (0-5); Specific Gravity,Urine 1.001 (1.001-1.035); Squamous Epithelial Cell,Urine <1 /hpf (0-4); Urobilinogen,Urine <2.0 mg/dL (<2.0); WBC,Urine <1 /hpf (0-5)
[2020-06-04] MEDS ORDERED: ONDANSETRON 4 MG ODT STARTER PACK 2 TAB BTL PO STA (06:49)
[2020-06-04 08:02] VITALS: BP 129/76; PULSE 86
== END 2020-06-04 08:06 | disposition home or self-care (01) ==
LOC: EC 04:47
DX: K52.9 Noninfective gastroenteritis and colitis, unspecified (principal); E86.0 Dehydration; J45.909 Unspecified asthma, uncomplicated; E10.9 Type 1 diabetes mellitus without complications; E78.5 Hyperlipidemia, unspecified; I10 Essential (primary) hypertension; F41.9 Anxiety disorder, unspecified
CPT/HCPCS: 36415; 93005; 80053; 82009; 83735; 84100; 85025; 81001; 99284; S0119

== ENCOUNTER → 2020-11-24 | Outpatient (CLI) | payer BC ==
--- NOTE | 2020-11-24 12:42 | MM ---
Reason for exam: follow-up at short interval from prior study. Last mammogram was performed 6 months ago. History: Patient is nulliparous. Benign US biopsy breast VAD LT of the left breast, May 23, 2020. Took estrogen for 6 months beginning at age 54. Took progesterone for 6 months beginning at age 54. Took other hormone for 6 months beginning at age 54. Physical Findings: Nurse did not find any significant physical abnormalities on exam. MG 3D Diag Mammo W/Cad LT CC and MLO view(s) were taken of the left breast. Prior study comparison: May 23, 2020, left breast MG diagnostic mammo LT wo CAD. April 25, 2020, bilateral MG 3d diag mammo w/cad [facility]. November 20, 2018, bilateral MG screening mammo w CAD. January 26, 2016, bilateral MG screening mammo w CAD. The breast tissue is heterogeneously dense. This may lower the sensitivity of mammography. Previous mammotome biopsy in the left breast. Stable lateral global asymmetry. Stable course central calcifications. No significant new findings when compared with previous films. These results were verbally communicated with the patient and result sheet given to the patient on 11/24/20. ASSESSMENT: Benign, BI-RAD 2 RECOMMENDATION: Routine screening mammogram of both breasts in 6 months.
== END | disposition home or self-care (01) ==
LOC: RADMAMWWP 10:52
PROVIDERS: ATTEND Surgery
DX: R92.8 Other abnormal and inconclusive findings on diagnostic imaging of breast (principal)
CPT/HCPCS: 77061; 77065

== ENCOUNTER → 2020-11-28 | Outpatient (CLI) | payer BC ==
[2020-11-28 13:50] VITALS: BP 119/73; PULSE 74; RESP 12; TEMP 97.7
== END | disposition home or self-care (01) ==
LOC: WWCWWP 13:40
PROVIDERS: ATTEND Surgery
DX: Z53.9 Procedure and treatment not carried out, unspecified reason (principal)

== ENCOUNTER 2021-03-11 20:34 | Emergency (ER) | payer BC ==
[2021-03-11] MEDS ORDERED: SODIUM CHLORIDE 0.9% 1,000 ML IV STA (20:56)
[2021-03-11 21:18] LABS: Basophils # (A) 0.1 k/uL (0-0.2); Basophils % (A) 2 %; Eosinophils % (A) 1 %; HCT 38.7 % (34.0-46.0); HGB 13.1 gm/dL (11.4-16.0); Lymphocytes # (A) 0.6 k/uL (1.0-4.8); Lymphocytes % (A) 10 %; MCH 30.8 pg (25.0-35.0); MCHC 33.7 g/dL (31.0-37.0); MCV 91.3 fL (80.0-100.0); Mean Platelet Volume 7.5; Monocytes # (A) 0.7 k/uL (0-1.0); Monocytes % (A) 11 %; Neutrophils # (A) 4.3 k/uL (1.3-7.7); Neutrophils % (A) 74 %; Platelet Count 222 k/uL (150-450); RBC 4.24 m/uL (3.80-5.40); RDW 12.9 % (11.5-15.5); WBC 5.8 k/uL (3.8-10.6)
[2021-03-11] MEDS ORDERED: ACETAMINOPHEN TAB 500 MG TAB PO STA (21:19)
--- NOTE | 2021-03-11 21:30 | ED ---
General Adult HPI - General Chief complaint: Chest Pain Stated complaint: Chest Pain, Vomiting Time Seen by Provider: 03/11/21 20:55 Source: patient Mode of arrival: ambulatory Limitations: no limitations - History of Present Illness Initial comments: Dictation was produced using [employer] dictation software. please excuse any grammatical, word or spelling errors. Chief Complaint: 55-year-old female presents with fever, sore throat chest pain dehydration History of Present Illness: Patient 55-year-old diabetic. She is insulin-depen dent. She states that otherwise, they she's developed sore throat,. Last night she developed chest pain. She has been having constitutional symptoms. She feels like she is getting hot and cold. She coughs and has chest pain is worse with movement. Patient having multiple episodes of vomiting. She checks her ketones in her urine regularly at home was found to be elevated. Patient worried that she is in ketoacidosis. She states that she is type I diabetic. The ROS documented in this emergency department record has been reviewed and confirmed by me. Those systems with pertinent positive or negative responses have been documented in the HPI. All other systems are other negative and/or noncontributory. PHYSICAL EXAM: General Impression: Alert and oriented x3, not in acute distress HEENT: Normocephalic atraumatic, extra-ocular movements intact, pupils equal and reactive to light bilaterally, mucous membranes moist. Cardiovascular: Heart regular rate and rhythm Chest: Able to complete full sentences, no retractions, no tachypnea, lungs clear to auscultation bilaterally Abdomen: abdomen soft, non-tender, non-distended, no organomegaly Musculoskeletal: Pulses present and equal in all extremities, no peripheral edema, negative CVA tenderness Motor: no focal deficits noted Neurological: CN II-XII grossly intact, no focal motor or sensory deficits noted Skin: Intact with no visualized rashes Psych: Normal affect and mood ED course: 55-year-old female presents with fever and respiratory infectious symptoms. Vital signs upon arrival shows tachycardia 102.0, heart rate 112, rest of vital signs within acceptable limits. Patient not vaccinated for COVID- 19. Laboratory evaluation obtained. CBC unremarkable. Coag panel negative. D- dimer 0.47. Metabolic panel is normal. No acidosis. Urinalysis is negative. COVID-19 is positive. Chest x-ray shows no acute processes. Patient reevaluated bedside at 10:00 PM non-hypoxic showing no signs wrist or distress. Patient treated with Tylenol and IV fluids. Patient agreeable for monoclonal antibody infusion. Patient to the emergency department after infusion and discharge. EKG interpretation: Ventricular rate 105, sinus tachycardia,. 160, QRS 60, QTC 452. No [place] prolongation, no QTC prolongation, no ST or T-wave changes noted. EKG compared to 06/04/2020 showing no changes. Overall, this EKG is unremarkable - Related Data Home Medications Medication Instructions Recorded Confirmed Losartan Potassium [Cozaar] 100 mg PO HS 09/12/14 03/11/21 amLODIPine [Norvasc] 2.5 mg PO HS 09/12/14 03/11/21 Cetirizine HCl [Zyrtec] 10 mg PO DAILY PRN 12/17/19 03/11/21 Insulin Aspart (For Pump) [NovoLOG 0.01 unit SQ-PUMP CONTINUOUS 12/17/19 03/11/21 (For Pump)] Omeprazole 20 mg PO DAILY 12/17/19 03/11/21 ALPRAZolam [Xanax] 1 mg PO BID PRN 03/24/20 03/11/21 atenoloL 25 mg PO HS 03/24/20 03/11/21 Cholecalciferol (Vitamin D3) 125 mcg PO DAILY 05/06/20 03/11/21 [Vitamin D3 (5000 Iu)] Escitalopram [Lexapro] 10 mg PO HS 05/06/20 03/11/21 Allergies Allergy/AdvReac Type Severity Reaction Status Date / Time adhesive Allergy Rash/Hives Verified 03/11/21 20:53 Penicillins Allergy Rash/Hives Verified 03/11/21 20:53 codeine AdvReac Chest Pain Verified 03/11/21 20:53 Sulfa (Sulfonamide AdvReac Hallucinati Verified 03/11/21 20:53 Antibiotics) ons Review of Systems ROS Statement: Those systems with pertinent positive or pertinent negative responses have been documented in the HPI. ROS Other: All systems not noted in ROS Statement are negative. Past Medical History Past Medical History: Asthma, Diabetes Mellitus, Hyperlipidemia, Hypertension, Skin Disorder Additional Past Medical History / Comment(s): hx of intermittant tachycardia, childhood asthma, eczema, Type 1 DM History of Any Multi-Drug Resistant Organisms: None Reported Past Surgical History: Orthopedic Surgery, Uterine Ablation Additional Past Surgical History / Comment(s): EGD, colonoscopy, kervin trigger finger, carpal tunnel, L Arm, R Leg, kervin eye surgery for hemorhage Past Anesthesia/Blood Transfusion Reactions: Motion Sickness, Postoperative Nausea & Vomiting (PONV) Past Psychological History: Anxiety Smoking Status: Never smoker Past Alcohol Use History: None Reported Past Drug Use History: None Reported - Past Family History Father Family Medical History: Diabetes Mellitus Mother Family Medical History: Diabetes Mellitus, Hypertension General Exam Limitations: no limitations Course Vital Signs 03/11/21 03/11/21 03/12/21 20:49 23:02 00:34 Temperature 102.0 F H 99.9 F H 98.4 F Pulse Rate 112 H 96 78 Respiratory 22 20 16 Rate Blood Pressure 160/84 145/80 124/72 O2 Sat by Pulse 97 97 99 Oximetry Medical Decision Making - Lab Data Result diagrams: 03/11/21 21:11 03/11/21 21:11 Lab Results 03/11/21 03/11/21 03/11/21 Range/Units 21:11 21:11 21:11 WBC 5.8 (3.8-10.6) k/uL RBC 4.24 (3.80-5.40) m/uL Hgb 13.1 (11.4-16.0) gm/dL Hct 38.7 (34.0-46.0) % MCV 91.3 (80.0-100.0) fL MCH 30.8 (25.0-35.0) pg MCHC 33.7 (31.0-37.0) g/dL RDW 12.9 (11.5-15.5) % Plt Count 222 (150-450) k/uL MPV 7.5 Neutrophils % 74 % Lymphocytes % 10 % Monocytes % 11 % Eosinophils % 1 % Basophils % 2 % Neutrophils # 4.3 (1.3-7.7) k/uL Lymphocytes # 0.6 L (1.0-4.8) k/uL Monocytes # 0.7 (0-1.0) k/uL Eosinophils # 0.0 (0-0.7) k/uL Basophils # 0.1 (0-0.2) k/uL PT (9.0-12.0) sec INR (<1.2) APTT (22.0-30.0) sec D-Dimer (<0.60) mg/L FEU Sodium (137-145) mmol/L Potassium (3.5-5.1) mmol/L Chloride (98-107) mmol/L Carbon Dioxide (22-30) mmol/L Anion Gap mmol/L BUN (7-17) mg/dL Creatinine (0.52-1.04) mg/dL Est GFR (CKD-EPI)AfAm (>60 ml/min/1.73 sqM) Est GFR (CKD-EPI)NonAf (>60 ml/min/1.73 sqM) Glucose (74-99) mg/dL Calcium (8.4-10.2) mg/dL Urine Color Yellow Urine Appearance Clear (Clear) Urine pH 5.5 (5.0-8.0) Ur Specific [place] 1.012 (1.001-1.035) Urine Protein 1+ H (Negative) Urine Glucose (UA) 2+ H (Negative) Urine Ketones 1+ H (Negative) Urine Blood Negative (Negative) Urine Nitrite Negative (Negative) Urine Bilirubin Negative (Negative) Urine Urobilinogen <2.0 (<2.0) mg/dL Ur Leukocyte Esterase Negative (Negative) Urine RBC 1 (0-5) /hpf Urine WBC 1 (0-5) /hpf Urine Bacteria Rare H (None) /hpf Urine Mucus Rare H (None) /hpf Coronavirus (PCR) Detected A (Not Detectd) 03/11/21 03/11/21 Range/Units 21:11 21:11 WBC (3.8-10.6) k/uL RBC (3.80-5.40) m/uL Hgb (11.4-16.0) gm/dL Hct (34.0-46.0) % MCV (80.0-100.0) fL MCH (25.0-35.0) pg MCHC (31.0-37.0) g/dL RDW (11.5-15.5) % Plt Count (150-450) k/uL MPV Neutrophils % % Lymphocytes % % Monocytes % % Eosinophils % % Basophils % % Neutrophils # (1.3-7.7) k/uL Lymphocytes # (1.0-4.8) k/uL Monocytes # (0-1.0) k/uL Eosinophils # (0-0.7) k/uL Basophils # (0-0.2) k/uL PT 10.7 (9.0-12.0) sec INR 1.0 (<1.2) APTT 25.1 (22.0-30.0) sec D-Dimer 0.47 (<0.60) mg/L FEU Sodium 133 L (137-145) mmol/L Potassium 4.3 (3.5-5.1) mmol/L Chloride 102 (98-107) mmol/L Carbon Dioxide 21 L (22-30) mmol/L Anion Gap 10 mmol/L BUN 14 (7-17) mg/dL Creatinine 0.84 (0.52-1.04) mg/dL Est GFR (CKD-EPI)AfAm >90 (>60 ml/min/1.73 sqM) Est GFR (CKD-EPI)NonAf 79 (>60 ml/min/1.73 sqM) Glucose 280 H (74-99) mg/dL Calcium 9.3 (8.4-10.2) mg/dL Urine Color Urine Appearance (Clear) Urine pH (5.0-8.0) Ur Specific [place] (1.001-1.035) Urine Protein (Negative) Urine Glucose (UA) (Negative) Urine Ketones (Negative) Urine Blood (Negative) Urine Nitrite (Negative) Urine Bilirubin (Negative) Urine Urobilinogen (<2.0) mg/dL Ur Leukocyte Esterase (Negative) Urine RBC (0-5) /hpf Urine WBC (0-5) /hpf Urine Bacteria (None) /hpf Urine Mucus (None) /hpf Coronavirus (PCR) (Not Detectd) Disposition Clinical Impression: COVID-19 Disposition: HOME SELF-CARE Condition: Fair Instructions (If sedation given, give patient instructions): Coronavirus Disease 2019 (COVID-19) Is patient prescribed a controlled substance at d/c from ED?: No Referrals: Fred Schwartz DO [Primary Care Provider] - 1-2 days
[2021-03-11 21:32] LABS: African American GFR (CKD) >90 (>60 ml/min/1.73 sqM); Anion Gap 10 mmol/L; Blood Urea Nitrogen 14 mg/dL (7-17); Calcium 9.3 mg/dL (8.4-10.2); Carbon Dioxide 21 mmol/L (22-30); Chloride 102 mmol/L (98-107); Glucose 280 mg/dL (74-99); Non-African American GFR(CKD) 79 (>60 ml/min/1.73 sqM); Potassium 4.3 mmol/L (3.5-5.1); Sodium 133 mmol/L (137-145)
[2021-03-11 21:34] LABS: Appearance,Urine Clear (Clear); Bacteria,Urine Rare /hpf; Bilirubin,Urine Negative (Negative); Blood,Urine Negative (Negative); Color,Urine Yellow; Glucose,Urine (UA) 2+ (Negative); Ketones,Urine 1+ (Negative); Leukocyte Esterase,Urine Negative (Negative); Mucus,Urine Rare /hpf; Nitrite,Urine Negative (Negative); PH, Urine 5.5 (5.0-8.0); Protein,Urine 1+ (Negative); RBC,Urine 1 /hpf (0-5); Specific Gravity,Urine 1.012 (1.001-1.035); Urobilinogen,Urine <2.0 mg/dL (<2.0); WBC,Urine 1 /hpf (0-5)
[2021-03-11 21:35] LABS: Partial Thromboplastin Time 25.1 sec (22.0-30.0); Prothrombin Time 10.7 sec (9.0-12.0)
--- NOTE | 2021-03-11 21:51 | XR ---
EXAMINATION TYPE: XR chest 1V portable DATE OF EXAM: 03/11/2021 COMPARISON: 03/24/2020 HISTORY: Chest pain TECHNIQUE: Single view Heart and mediastinum are normal. Lungs are clear. Diaphragm is normal. Bony thorax is intact IMPRESSION: Normal chest. No change.
[2021-03-11] MEDS ORDERED: SODIUM CHLORIDE 0.9% 50 ML IVPB ONE (22:45)
[2021-03-11] MEDS ORDERED: SOTROVIMAB (EUA) 500 MG in SODIUM CHLORIDE 0.9% 100 ML IVPB ONE (23:00)
[2021-03-12 00:35] VITALS: BP 124/72; PULSE 78; RESP 16; TEMP 98.4
== END 2021-03-12 00:35 | disposition home or self-care (01) ==
LOC: EC 20:34
DX: U07.1 COVID-19 (principal); J45.909 Unspecified asthma, uncomplicated; I10 Essential (primary) hypertension; E10.9 Type 1 diabetes mellitus without complications; Z91.09 Other allergy status, other than to drugs and biological substances; Z88.0 Allergy status to penicillin; Z88.5 Allergy status to narcotic agent; Z88.2 Allergy status to sulfonamides; Z79.899 Other long term (current) drug therapy; Z96.41 Presence of insulin pump (external) (internal)
CPT/HCPCS: 36415; 93005; 85379; 80048; 85025; 85610; 85730; 81001; 87635; 71045; 99285; 96360; 96361; Q0247

== ENCOUNTER → 2021-08-17 | Outpatient (CLI) | payer BC ==
--- NOTE | 2021-08-17 14:43 | MM ---
Reason for Exam: Follow-up at short interval from prior study. Last mammogram was performed 1 year(s) and 3 month(s) ago. Patient History: Menarche at age 13. Patient has no children. Estrogen for 6 months starting at age 54. Progesterone for 6 months starting at age 54. 05/23/2020, Benign Core Biopsy on the left side. Risk Values: Ashwini 5 year model risk: 1.5%. NCI Lifetime model risk: 10.8%. Prior Study Comparison: 11/20/2018 Bilateral Screening Mammogram, [facility]. 04/25/2020 Bilateral Diagnostic Mammogram, [facility]. 05/23/2020 Left Diagnostic Mammogram, [facility]. 11/24/2020 Left Diagnostic Mammogram, [facility]. Tissue Density: The breast tissue is heterogeneously dense. This may lower the sensitivity of mammography. Findings: Analyzed By CAD. Biopsy marker is on the left. Benign-appearing calcifications are present bilaterally. Overall Assessment: Benign, BI-RAD 2 Management: Screening Mammogram of both breasts in 1 year. A clinical breast exam by your physician is recommended on an annual basis and results should be correlated with mammographic findings. This exam should not preclude additional follow-up of suspicious palpable abnormalities. Results were given to the patient verbally at the time of exam. Electronically signed and approved by: Grupo Nelson D.O. Radiologis
== END | disposition home or self-care (01) ==
LOC: RADMAMWWP 14:09
PROVIDERS: ATTEND Surgery
DX: R92.8 Other abnormal and inconclusive findings on diagnostic imaging of breast (principal)
CPT/HCPCS: 77062; 77066

== ENCOUNTER → 2021-09-11 | Outpatient (CLI) | payer BC ==
[2021-09-11 16:10] VITALS: BP 131/75; PULSE 72; RESP 17; TEMP 98.5
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
== END ==
LOC: WWCWWP 15:40
PROVIDERS: ATTEND Surgery
DX: N60.11 Diffuse cystic mastopathy of right breast (principal); N60.12 Diffuse cystic mastopathy of left breast; E11.9 Type 2 diabetes mellitus without complications; J45.909 Unspecified asthma, uncomplicated; F41.9 Anxiety disorder, unspecified; F32.A Depression, unspecified; I10 Essential (primary) hypertension; N20.0 Calculus of kidney; L25.8 Unspecified contact dermatitis due to other agents; Z88.0 Allergy status to penicillin; Z88.2 Allergy status to sulfonamides; Z88.5 Allergy status to narcotic agent; Z91.048 Other nonmedicinal substance allergy status

== ENCOUNTER 2022-02-12 13:29 | Emergency (ER) | payer BC ==
[2022-02-12 13:39] VITALS: TEMP 99.4
--- NOTE | 2022-02-12 13:59 | XR ---
EXAMINATION TYPE: XR chest 2V DATE OF EXAM: 02/12/2022 COMPARISON: NONE HISTORY: Shortness of breath TECHNIQUE: Frontal and lateral views of the chest are obtained. FINDINGS: Scattered senescent parenchymal changes noted. Hyperinflation compatible with COPD. No evidence for infiltrate. No evidence for atelectasis. Heart size is stable. Mediastinal structures are stable and grossly unremarkable. No evidence for hilar prominence. Degenerative changes dorsal spine. IMPRESSION: 1. No evidence for acute pulmonary disease.
[2022-02-12] MEDS ORDERED: DEXAMETHASONE SOD PHOSPHATE 10 MG/ML 1 ML VIAL IM STA (14:23)
[2022-02-12] MEDS ORDERED: ALBUTEROL HFA INHALER INHALATION STA (14:23)
[2022-02-12] MEDS ORDERED: ACETAMINOPHEN TAB 325 MG TAB PO STA (14:24)
--- NOTE | 2022-02-12 14:26 | ED ---
URI HPI - General Chief Complaint: Upper Respiratory Infection Stated Complaint: sob Time Seen by Provider: 02/12/22 14:13 Source: patient, family, RN notes reviewed, old records reviewed Mode of arrival: ambulatory Limitations: no limitations - History of Present Illness Initial Comments: 56-year-old female presents to the emergency room with complaints of fever and cough for 2 days. Patient states that several other family members are sick with similar symptoms. She does have a history of asthma and hypertension and diabetes. Denies any nausea or vomiting. She is a nonsmoker. MD Complaint: cough, nasal congestion -: days(s) (2) Severity scale (1-10): 8 Quality: aching Consistency: constant Context: sick contacts - Related Data Home Medications Medication Instructions Recorded Confirmed Losartan Potassium [Cozaar] 100 mg PO HS 09/12/14 09/11/21 amLODIPine [Norvasc] 2.5 mg PO HS 09/12/14 09/11/21 Cetirizine HCl [Zyrtec] 10 mg PO DAILY PRN 12/17/19 09/11/21 Insulin Aspart (For Pump) [NovoLOG 0.01 unit SQ-PUMP CONTINUOUS 12/17/19 09/11/21 (For Pump)] Omeprazole 20 mg PO DAILY 12/17/19 09/11/21 ALPRAZolam [Xanax] 1 mg PO BID PRN 03/24/20 09/11/21 atenoloL 25 mg PO HS 03/24/20 09/11/21 Cholecalciferol (Vitamin D3) 125 mcg PO DAILY 05/06/20 09/11/21 [Vitamin D3 (5000 Iu)] Escitalopram [Lexapro] 10 mg PO HS 05/06/20 09/11/21 Allergies Allergy/AdvReac Type Severity Reaction Status Date / Time adhesive Allergy Rash/Hives Verified 02/12/22 13:39 Penicillins Allergy Rash/Hives Verified 02/12/22 13:39 codeine AdvReac Chest Pain Verified 02/12/22 13:39 Sulfa (Sulfonamide AdvReac Hallucinati Verified 02/12/22 13:39 Antibiotics) ons Review of Systems ROS Statement: Those systems with pertinent positive or pertinent negative responses have been documented in the HPI. ROS Other: All systems not noted in ROS Statement are negative. Past Medical History Past Medical History: Asthma, Diabetes Mellitus, Hyperlipidemia, Hypertension, Skin Disorder Additional Past Medical History / Comment(s): hx of intermittant tachycardia, childhood asthma, eczema, Type 1 DM History of Any Multi-Drug Resistant Organisms: None Reported Past Surgical History: Orthopedic Surgery, Uterine Ablation Additional Past Surgical History / Comment(s): EGD, colonoscopy, kervin trigger finger, carpal tunnel, L Arm, R Leg, kervin eye surgery for hemorhage Past Anesthesia/Blood Transfusion Reactions: Motion Sickness, Postoperative Nausea & Vomiting (PONV) Past Psychological History: Anxiety Smoking Status: Never smoker Past Alcohol Use History: None Reported Past Drug Use History: None Reported - Past Family History Father Family Medical History: Diabetes Mellitus Mother Family Medical History: Diabetes Mellitus, Hypertension General Exam Limitations: no limitations General appearance: alert, in no apparent distress Head exam: Present: atraumatic Eye exam: Absent: scleral icterus, conjunctival injection, periorbital swelling ENT exam: Present: normal oropharynx, mucous membranes moist Expanded Mouth exam: Present: tongue normal, tongue elevation. Absent: drooling, trismus Throat exam: negative: tonsillar erythema, tonsillar exudate, R peritonsillar mass, L peritonsillar mass Respiratory exam: Present: wheezes. Absent: rales, rhonchi, stridor, chest wall tenderness Cardiovascular Exam: Present: tachycardia Extremities exam: Present: normal capillary refill Back exam: Absent: tenderness Neurological exam: Present: alert, oriented X3 Psychiatric exam: Present: normal affect, normal mood Skin exam: Present: warm, dry, normal color. Absent: cyanosis, diaphoretic, petechiae, pallor Course Vital Signs 02/12/22 02/12/22 13:37 15:21 Temperature 99.4 F Pulse Rate 102 H 110 H Respiratory 24 2 L Rate Blood Pressure 158/93 165/90 O2 Sat by Pulse 97 100 Oximetry Medical Decision Making - Medical Decision Making Patient presents with 2 days of cough and low-grade fevers. Other family members are also sick. States her blood glucose levels have been stable and 130 today. She is influenza A positive. Chest x-ray interpreted by me shows no area of consolidation, trachea midline no evidence of free air. Radiologist interpretation no evidence of acute pulmonary process. Oxygen saturation 97%. She was given a shot of Decadron for her wheezing and albuterol inhaler. She was offered Tamiflu and declined. She was encouraged to increase her fluid intake. Continue taking her vitamin C, vitamin D and zinc daily. Return to the emergency room with any new or concerning symptoms. Patient family are agreeable to this plan of care. Case discussed with Dr. Ibarra - Lab Data Lab Results 02/12/22 Range/Units 13:41 Influenza Type A (PCR) Detected A (Not Detectd) Influenza Type B (PCR) Not Detected (Not Detectd) RSV (PCR) Not Detected (Not Detectd) SARS-CoV-2 (PCR) Not Detected (Not Detectd) Disposition Clinical Impression: Influenza, Bronchitis Disposition: HOME SELF-CARE Condition: Good Instructions (If sedation given, give patient instructions): Influenza (ED), Acute Bronchitis (ED) Additional Instructions: Increase your fluid intake. Take Tylenol and/or Motrin as needed for any pain, discomfort or fevers. Continue taking vitamin C, vitamin D and zinc daily to improve your immune health. You were offered Tamiflu and declined at this time. Please return to the emergency room with any new or concerning symptoms. Is patient prescribed a controlled substance at d/c from ED?: No Referrals: Fred Schwartz DO [Primary Care Provider] - 1-2 days Time of Disposition: 15:07
[2022-02-12 15:23] VITALS: BP 165/90; PULSE 110; RESP 2
== END 2022-02-12 15:25 | disposition home or self-care (01) ==
LOC: EC 13:29
DX: J10.1 Influenza due to other identified influenza virus with other respiratory manifestations (principal); J45.909 Unspecified asthma, uncomplicated; E11.9 Type 2 diabetes mellitus without complications; E78.5 Hyperlipidemia, unspecified; I10 Essential (primary) hypertension; F41.9 Anxiety disorder, unspecified; Z91.048 Other nonmedicinal substance allergy status; Z88.0 Allergy status to penicillin; Z88.2 Allergy status to sulfonamides; Z88.5 Allergy status to narcotic agent; Z79.4 Long term (current) use of insulin; Z79.899 Other long term (current) drug therapy; Z20.822 Contact with and (suspected) exposure to COVID-19
CPT/HCPCS: 87636; 71046; 99285; 96372; J1100

== ENCOUNTER → 2022-08-23 | Outpatient (CLI) | payer BC ==
--- NOTE | 2022-08-25 08:14 | MM ---
Reason for Exam: Screening (asymptomatic). Last mammogram was performed 1 year(s) and 1 month(s) ago. Patient History: Menarche at age 13. Patient has no children. Postmenopausal. Estrogen for 6 months starting at age 54. Progesterone for 6 months starting at age 54. 05/23/2020, Benign Core Biopsy on the left side. Risk Values: Ashwini 5 year model risk: 1.6%. NCI Lifetime model risk: 10.7%. Prior Study Comparison: 05/23/2020 Left Diagnostic Mammogram, [facility]. 11/24/2020 Left Diagnostic Mammogram, [facility]. 08/17/2021 Bilateral MG 3D diag mammo w/cad CHRISTI, [facility]. Tissue Density: The breast tissue is heterogeneously dense. This may lower the sensitivity of mammography. Findings: Analyzed By CAD. There is no suspicious group of microcalcifications or new suspicious mass in either breast. Overall Assessment: Negative, BI-RAD 1 Management: Screening Mammogram of both breasts in 1 year. . Patient should continue monthly self-breast exams. A clinical breast exam by your physician is recommended on an annual basis. This exam should not preclude additional follow-up of suspicious palpable abnormalities. Note on Ashwini scores and lifetime risk: 1. A Ashwini score greater than 3% is considered moderate risk. If this is the case, consider specialist referral to assess eligibility for a risk reducing agent. 2. If overall lifetime risk for the development of breast cancer is 20% or higher, the patient may qualify for future screening with alternating mammogram and breast MRI. Electronically signed and approved by: Reginaldo Teresa M.D. Radiologis
== END | disposition home or self-care (01) ==
LOC: RADMAMWWP 08:53
PROVIDERS: ATTEND Surgery
DX: Z12.31 Encounter for screening mammogram for malignant neoplasm of breast (principal); Z78.0 Asymptomatic menopausal state
CPT/HCPCS: 77063; 77067

== ENCOUNTER → 2022-09-30 | Outpatient (CLI) | payer BC ==
[2022-09-30 10:37] VITALS: BP 126/81; PULSE 65; RESP 18; TEMP 98.1
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
== END ==
LOC: WWCWWP 10:20
PROVIDERS: ATTEND Surgery
DX: N60.11 Diffuse cystic mastopathy of right breast (principal); N60.12 Diffuse cystic mastopathy of left breast; N63.21 Unspecified lump in the left breast, upper outer quadrant; E11.9 Type 2 diabetes mellitus without complications; F32.A Depression, unspecified; J45.909 Unspecified asthma, uncomplicated; I10 Essential (primary) hypertension; F41.9 Anxiety disorder, unspecified; N20.0 Calculus of kidney; L25.9 Unspecified contact dermatitis, unspecified cause; Z87.442 Personal history of urinary calculi; Z91.048 Other nonmedicinal substance allergy status; Z88.0 Allergy status to penicillin; Z88.5 Allergy status to narcotic agent; Z88.2 Allergy status to sulfonamides; Z79.4 Long term (current) use of insulin

== ENCOUNTER → 2023-02-17 | Outpatient (CLI) | payer BC ==
--- NOTE | 2023-02-17 12:09 | XR ---
EXAMINATION TYPE: XR abdomen 1V DATE OF EXAM: 02/17/2023 9:09 AM CLINICAL INDICATION:Female, 57 years old with history of K21.9 Gastro-esophageal reflux; [facility] COMPARISON: 01/11/2020. TECHNIQUE: One radiographic view of the abdomen was obtained. FINDINGS: The bowel gas pattern is nonspecific without dilated loops of small or large bowel. There i s no evidence for organomegaly or pneumoperitoneum. The osseous structures are intact. No abnormal calcifications are present. Fecal material and gas are demonstrated throughout the colon and rectum. Calcific densities project over the left kidney measuring up to 7 mm and on the right side measuring up to 6 mm. IMPRESSION: 1. Nonspecific bowel gas pattern without radiographic evidence for acute process. 2. Bilateral renal calculi as seen on prior CT.
== END | disposition home or self-care (01) ==
LOC: RADXRMAIN 08:55
PROVIDERS: ATTEND Family Medicine
DX: N20.0 Calculus of kidney (principal); K21.9 Gastro-esophageal reflux disease without esophagitis
CPT/HCPCS: 74018

== ENCOUNTER → 2023-08-05 | Outpatient (CLI) | payer BC | END | disposition home or self-care (01) | LOC: LABWHC1 13:50 | PROVIDERS: ATTEND Family Medicine | DX: E55.9 Vitamin D deficiency, unspecified (principal); E11.9 Type 2 diabetes mellitus without complications | CPT/HCPCS: 36415; 82306; 82375; 83036 ==

== ENCOUNTER → 2023-08-29 | Outpatient (CLI) | payer BC ==
--- NOTE | 2023-09-02 11:13 | MM ---
Reason for Exam: Screening (asymptomatic). Last screening mammogram was performed 12 month(s) ago. Patient History: Menarche at age 13. Patient has no children. Postmenopausal. Estrogen for 6 months starting at age 54. Progesterone for 6 months starting at age 54. 05/23/2020, Benign Core Biopsy on the left side. Risk Values: Ashwini 5 year model risk: 1.6%. NCI Lifetime model risk: 10.4%. Prior Study Comparison: 11/24/2020 Left Diagnostic Mammogram, [facility]. 08/17/2021 Bilateral MG 3D diag mammo w/cad [facility]. 08/23/2022 Bilateral MG 3D screening mammo w/cad, [facility]. Tissue Density: The breasts are heterogeneously dense, which may obscure small masses. Findings: Analyzed By CAD. Left breast biopsy clip. Right breast: There is no suspicious group of microcalcifications or new suspicious mass. Benign-appearing calcifications right breast. Left breast: There is no suspicious group of microcalcifications or new suspicious mass. Benign-appearing calcifications left breast. Overall Assessment: Negative, BI-RAD 1 Management: Screening Mammogram of both breasts in [address] [facility] will attempt to contact patient to return for supplemental views and ultrasound if indicated. Patient should continue monthly self-breast exams. A clinical breast exam by your physician is recommended on an annual basis. This exam should not preclude additional follow-up of suspicious palpable abnormalities. Note on Ashwini scores and lifetime risk: 1. A Ashwini score greater than 3% is considered moderate risk. If this is the case, consider specialist referral to assess eligibility for a risk reducing agent. 2. If overall lifetime risk for the development of breast cancer is 20% or higher, the patient may qualify for future screening with alternating mammogram and breast MRI. Electronically signed and approved by: [place] DO
== END | disposition home or self-care (01) ==
LOC: RADMAMWWP 09:47
PROVIDERS: ATTEND Surgery
DX: Z12.31 Encounter for screening mammogram for malignant neoplasm of breast (principal); Z78.0 Asymptomatic menopausal state
CPT/HCPCS: 77063; 77067

== ENCOUNTER → 2023-09-01 | Outpatient (CLI) | payer BC ==
[2023-09-01 12:09] VITALS: BP 126/77; PULSE 77; RESP 16; TEMP 98.2
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
== END ==
LOC: WWCWWP 11:33
PROVIDERS: ATTEND Surgery
DX: N60.11 Diffuse cystic mastopathy of right breast (principal); N60.12 Diffuse cystic mastopathy of left breast; N63.21 Unspecified lump in the left breast, upper outer quadrant; E11.9 Type 2 diabetes mellitus without complications; J45.909 Unspecified asthma, uncomplicated; F41.9 Anxiety disorder, unspecified; F32.A Depression, unspecified; I10 Essential (primary) hypertension; N20.0 Calculus of kidney; L25.9 Unspecified contact dermatitis, unspecified cause; Z91.048 Other nonmedicinal substance allergy status; Z88.0 Allergy status to penicillin; Z88.5 Allergy status to narcotic agent; Z88.2 Allergy status to sulfonamides; Z79.899 Other long term (current) drug therapy; Z79.4 Long term (current) use of insulin

== ENCOUNTER 2024-01-13 09:31 | Day surgery (SDC) | payer BC ==
[2024-01-13 10:09] VITALS: TEMP 97.4
[2024-01-13] MEDS: LACTATED RINGERS 1,000 ML IV SCH (10:16)
[2024-01-13] MEDS: IV FLUID CONTINUATION 1,000 ML IV ONE (10:18)
[2024-01-13] MEDS: LIDOCAINE 1% (10MG/ML) FOR IV START INTRADERMA STA (10:18)
[2024-01-13 10:24] LABS: Glucose,Whole Blood 321 mg/dL (70-110)
[2024-01-13] MEDS ORDERED: PROPOFOL 10 MG/ML 20 ML VIAL IV ONE (10:34)
[2024-01-13] MEDS ORDERED: LIDOCAINE 1% INJ 10MG/ML (20 ML MDV) ONE (10:34)
--- NOTE | 2024-01-13 10:52 | P.PCN ---
Date of Procedure: 01/13/24 Procedure(s) Performed: BRIEF HISTORY: Patient is a 58-year-old pleasant white female scheduled for an elective colonoscopy as a part of evaluation by history of colon polyps. Her last colonoscopy was 6 years ago. PROCEDURE PERFORMED: Colonoscopy with biopsy. PREOPERATIVE DIAGNOSIS: History of colon polyps. IV sedation per Anesthesia. PROCEDURE: After informed consent was obtained, the patient, was brought into the endoscopy unit. IV sedation was administered by Anesthesia under continuous monitoring. Digital rectal examination was normal. Initially the Olympus CF-160 flexible video colonoscope was then inserted in the rectum, gradually advanced into the cecum without any difficulty. Careful examination was performed as the scope was gradually being withdrawn. Ileocecal valve and the appendiceal orifice were visualized and appeared normal. Prep was excellent. Mucosa of the cecum, ascending colon, within the transverse colon there was a 3 mm and 4 mm polyp removed by cold biopsy. Rest of the transverse colon, descending colon, sigmoid colon, and rectum appeared normal. Rectum there was a 3 mm polyp removed by cold biopsy. Scattered sigmoid diverticulosis. Retroflexion was performed in the rectum and no lesions were seen. The patient tolerated the procedure well. IMPRESSION: 3 and 4 mm transverse colon polyp status post cold biopsy 3 mm proximal rectal colon polyp status post cold biopsy Scattered sigmoid diverticulosis RECOMMENDATIONS: Findings of this examination were discussed with the patient as well as her family.. She was advised to follow-up with the biopsy results. If the biopsy reveals adenoma she can have repeat colonoscopy in 5 years
[2024-01-13 12:06] VITALS: BP 114/58; PULSE 78; RESP 20
== END 2024-01-13 11:35 | disposition home or self-care (01) ==
LOC: ORWHC2ENDO 09:31
PROVIDERS: ATTEND Internal Medicine Gastroenterology
DX: K63.5 Polyp of colon (principal); K62.1 Rectal polyp; K57.30 Diverticulosis of large intestine without perforation or abscess without bleeding; I10 Essential (primary) hypertension; E78.5 Hyperlipidemia, unspecified; G47.33 Obstructive sleep apnea (adult) (pediatric); F41.9 Anxiety disorder, unspecified; E11.9 Type 2 diabetes mellitus without complications; K21.9 Gastro-esophageal reflux disease without esophagitis; Z89.202 Acquired absence of left upper limb, unspecified level; Z90.01 Acquired absence of eye; Z89.512 Acquired absence of left leg below knee; Z88.0 Allergy status to penicillin; Z88.2 Allergy status to sulfonamides; Z88.5 Allergy status to narcotic agent; Z79.82 Long term (current) use of aspirin; Z79.4 Long term (current) use of insulin; Z79.899 Other long term (current) drug therapy
CPT/HCPCS: 88305; 45380; J2003; J2704

== ENCOUNTER 2024-04-29 15:44 | Emergency (ER) | payer BC ==
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
[2024-04-29] MEDS: ONDANSETRON 4 MG/2 ML VIAL IVP STA (17:25)
[2024-04-29] MEDS: MORPHINE SULFATE 4 MG/ML SYRINGE IV STA (17:26)
[2024-04-29 17:27] LABS: Basophils # (A) 0.1 k/uL (0-0.2); Basophils % (A) 1 %; Eosinophils # (A) 0.5 k/uL (0-0.7); Eosinophils % (A) 4 %; HCT 44.8 % (34.0-46.0); HGB 14.1 gm/dL (11.4-16.0); Lymphocytes # (A) 1.4 k/uL (1.0-4.8); Lymphocytes % (A) 11 %; MCH 28.3 pg (25.0-35.0); MCHC 31.5 g/dL (31.0-37.0); MCV 89.7 fL (80.0-100.0); Mean Platelet Volume 7.3; Monocytes # (A) 0.5 k/uL (0-1.0); Monocytes % (A) 4 %; Neutrophils # (A) 10.2 k/uL (1.3-7.7); Neutrophils % (A) 80 %; Platelet Count 301 k/uL (150-450); RBC 4.99 m/uL (3.80-5.40); RDW 13.8 % (11.5-15.5); WBC 12.8 k/uL (3.8-10.6)
--- NOTE | 2024-04-29 17:54 | CT ---
EXAMINATION TYPE: CT abdomen pelvis wo con DATE OF EXAM: 04/29/2024 5:42 PM COMPARISON: Previous CT study 01/11/2020. CLINICAL INDICATION: Female, 58 years old with history of LLQ pain; Lower abdominal pain TECHNIQUE: Axial CT abdomen pelvis wo con;Sagittal and coronal reformats were created on a separate workstation. Oral contrast used: without Oral Contrast (none if empty) CT DLP: 1019.6 mGycm, Automated exposure control for dose reduction was used. FINDINGS: LOWER CHEST: Unremarkable ABDOMEN LIVER: Unremarkable GALLBLADDER AND BILE DUCTS: Unremarkable. PANCREAS: Unremarkable. SPLEEN: Unremarkable. ADRENAL GLANDS: Unremarkable. KIDNEYS AND URETERS: Proximal 6 mm left ureteral calculus causing mild upstream hydroureteronephrosis . There is mild asymmetric left perinephric fat stranding/inflammatory changes. Additional nodular to bilateral renal calculi. PELVIS BLADDER: No evidence for wall thickening or mass given limitations of exam. REPRODUCTIVE: Unremarkable. ABDOMEN & PELVIS STOMACH AND BOWEL: Stomach and duodenum are unremarkable. Scattered diverticula are noted throughout the colon. No evidence of bowel obstruction. PERITONEUM/RETROPERITONEUM: No evidence of pneumoperitoneum or free fluid. VASCULATURE: No evidence of aortic aneurysm. MUSCULOSKELETAL: No acute osseous abnormalities. Chronic moderate compression deformity of the L1 paul tebral body. LYMPH NODES: No gross evidence for lymphadenopathy. SOFT TISSUE/ABDOMINAL WALL: Unremarkable IMPRESSION: 1. Proximal 6 mm left ureteral calculus causing mild upstream hydronephrosis and associated inflamma tory changes. 2. Additional nonobstructing bilateral renal calculi. 3. Colonic diverticulosis. [facility], , 04/29/2024 5:51 PM
[2024-04-29 18:00] LABS: Appearance,Urine Clear (Clear); Bilirubin,Urine Negative (Negative); Blood,Urine Large (Negative); Color,Urine Yellow; Glucose,Urine (UA) Negative (Negative); Ketones,Urine Negative (Negative); Leukocyte Esterase,Urine Negative (Negative); Nitrite,Urine Negative (Negative); PH, Urine 7.5 (5.0-8.0); Protein,Urine 1+ (Negative); RBC,Urine >182 /hpf (0-5); Specific Gravity,Urine 1.017 (1.001-1.035); Squamous Epithelial Cell,Urine 1 /hpf (0-4); Urobilinogen,Urine <2.0 mg/dL (<2.0); WBC,Urine 3 /hpf (0-5)
[2024-04-29 19:24] VITALS: RESP 17; TEMP 98.1
[2024-04-29 19:38] LABS: ALT 37 U/L (4-34); AST 35 U/L (14-36); African American GFR (CKD) >90 (>60 ml/min/1.73 sqM); Albumin 4.2 g/dL (3.5-5.0); Alkaline Phosphatase 112 U/L (38-126); Amylase 55 U/L (30-110); Anion Gap 12 mmol/L; Blood Urea Nitrogen 21 mg/dL (7-17); Carbon Dioxide 20 mmol/L (22-30); Chloride 108 mmol/L (98-107); Glucose 148 mg/dL (74-99); Lipase 86 U/L (23-300); Non-African American GFR(CKD) 86 (>60 ml/min/1.73 sqM); Potassium 4.4 mmol/L (3.5-5.1); Sodium 140 mmol/L (137-145); Total Bilirubin 0.8 mg/dL (0.2-1.3)
[2024-04-29] MEDS: KETOROLAC 15 MG/ML 1 ML VIAL IVP STA (20:32)
[2024-04-29] MEDS: TAMSULOSIN 0.4 MG CAP.ER.24H PO STA (20:33)
[2024-04-29 20:45] VITALS: BP 142/83; PULSE 68
== END 2024-04-29 20:44 | disposition home or self-care (01) ==
LOC: EC 15:44
DX: N13.2 Hydronephrosis with renal and ureteral calculous obstruction (principal); Z91.048 Other nonmedicinal substance allergy status; Z88.7 Allergy status to serum and vaccine; Z88.5 Allergy status to narcotic agent; Z88.2 Allergy status to sulfonamides
CPT/HCPCS: 36415; 80053; 82150; 83605; 83690; 85025; 81001; 74176; 99284; 96374; 96375 ×2; J2270; J2405; J1885

== ENCOUNTER → 2024-05-17 | Day surgery (SDC) | payer BC ==
[2024-05-14 14:50] VITALS: BMI 19.7
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
[~2024-05-17] MED LIST changes: +GLYCOPYRROLATE 0.2 MG/ML 2 ML VIAL ONE; -LACTATED RINGERS 1,000 ML IV SCH; +LIDOCAINE 1% (10MG/ML) FOR IV START INTRADERMA PRN; -LIDOCAINE 1% 20 ML VIAL (10MG/ML) FOR IV START INTRADERMA PRN; +LIDOCAINE 1% INJ 10MG/ML (20 ML MDV) ONE; +MIDAZOLAM 2 MG/2 ML VIAL ONE; +NEOSTIGMINE 1 MG/ML 10 ML VIAL ONE; +PHENYLEPHRINE-0.9% NACL SYG 1,000 MCG/10 ML SYRINGE ONE; +PROPOFOL 10 MG/ML 20 ML VIAL IV ONE; +ROCURONIUM 10 MG/ML (5 ML VIAL) IV ONE; +SUCCINYLCHOLINE CHLORIDE 200 MG/10 ML VIAL IV ONE; +fentaNYL (PF) 50 MCG/ML 2 ML AMP IV PRN; +fentaNYL (PF) 50 MCG/ML 2 ML AMP ONE
--- NOTE | 2024-05-17 08:41 | XR ---
EXAMINATION TYPE: XR KUB DATE OF EXAM: 05/17/2024 8:34 AM CLINICAL INDICATION: Female, 58 years old with history of calculus, pain TECHNIQUE: 2 supine images of the abdomen. COMPARISON: CT abdomen and pelvis May 09, 2024 FINDINGS: There are 2 small bilateral renal calculi seen bilaterally measuring up to 6 mm in size kervin aterally. There are vascular calcification and tubal ligation clips in the pelvis. Small calcified fi broids are noted. Overall nonobstructive bowel gas pattern. Visualized osseous structures are intact. IMPRESSION: As above. [facility], , 05/17/2024 8:39 AM
[2024-05-17] MEDS: IV FLUID CONTINUATION 1,000 ML IV ONE (08:44)
[2024-05-17] MEDS: ONDANSETRON 4 MG/2 ML VIAL IVP ONE (08:58)
[2024-05-17] MEDS: DEXAMETHASONE SOD PHOSPHATE 4 MG/ML 1 ML VIAL IV ONE (08:58)
[2024-05-17] MEDS: LACTATED RINGERS 1,000 ML IV SCH (08:58)
[2024-05-17 09:03] LABS: Glucose,Whole Blood 102 mg/dL (70-110)
[2024-05-17] MEDS: IOPAMIDOL-300 100ML BTL MISCELLANE ONE ×2 (09:24)
[2024-05-17] MEDS: LACTATED RINGERS 1,000 ML IV ONE (10:25)
[2024-05-17 11:18] VITALS: RESP 16; TEMP 97
--- NOTE | 2024-05-17 11:18 | FL ---
EXAMINATION TYPE: FL urography retrograde DATE OF EXAM: 05/17/2024 CLINICAL INDICATION: Female, 58 years old with history of CYSTOSCOPY LITHOTRIPSY, kidney stones. TECHNIQUE: Fluoroscopy. COMPARISON: Same day abdominal x-ray. FINDINGS: Fluoroscopic guidance was provided during cystoscopy and lithotripsy procedure performed luis Carey. A total of 26 seconds of fluoroscopic time was utilized during the procedure and 6 spo t images was acquired. Images acquired show eventual placement of a ureter stent. TOTAL DAP = 0.71554 mGym2. IMPRESSION: As Above. [facility], , 05/17/2024 11:15 AM
[2024-05-17] MEDS: HYDROmorphone 0.5 MG/0.5 ML SYRINGE IVP PRN (11:27)
[2024-05-17 13:34] VITALS: BP 153/86
[2024-05-17 13:35] VITALS: PULSE 64
--- NOTE | 2024-05-17 15:46 | P.OP ---
Date of Procedure: 05/17/24 Preoperative Diagnosis: Left ureteral calculus, left renal calculi Postoperative Diagnosis: Same Procedure(s) Performed: Cystoscopy, left retrograde pyelogram, left ureteroscopy with Holmium laser lithotripsy and stone basketing, left ureteral stent insertion Anesthesia: MAGIA Surgeon: Ramakrishna Carey Estimated Blood Loss (ml): 5 IV fluids (ml): 1,000 Pathology: other (Left ureteral calculus fragments, sent for chemical analysis) Condition: stable Disposition: PACU Indications for Procedure: The patient is a 58-year-old white female with a history of calcium oxalate urolithiasis. Since April 29, she has experienced left flank pain radiating to the left lower abdomen. CT scan performed on April 29, 2024 showed mild left hydronephrosis due to a 6 mm left UPJ calculus. Additionally, 5-6 left renal calculi were seen along with 2-3 right renal calculi. Previous 24-hour urine study showed oliguria as a risk factor for recurrent urolithiasis. She states that she has passed approximately 12 calculi up to 5 mm in size. She has elected to undergo ureteroscopic removal of her left ureteral calculus and left renal calculi. Operative Findings: Large left ureteral calculus at the level of the iliac vessels. 3 left renal ca lculi measuring over 5 mm were identified and treated with laser lithotripsy. Description of Procedure: The patient was taken to the operating room and placed in the dorsolithotomy position, with legs supported in Octavio stirrups. The external genitalia was prepped and draped sterilely. The 30 lens was used to introduce the 21-[place] Thomas cystoscopic sheath through the urethra and into the bladder under direct vision. The bladder was examined in its entirety. Both ureteral orifices were normal anatomic location and configuration. No tumors or foreign bodies were seen. Using a 10 [place] cone-tip catheter, a left retrograde pyelogram was performed. The ureteral calculus was identified at the level of the iliac vessels. The Thomas semirigid ureteroscope was advanced into the bladder, and the left ureteral orifice was cannulated. The ureteroscope was slowly advanced under direct vision, up to the calculus. Moderate edema was noted where the calculus was impacted. The calculus was dislodged and migrated proximally. The 272 m holmium laser probe was passed through the ureteroscope, and lithotripsy was performed. The calculus was quite dense. The majority of the lithotripsy was done utilizing a dusting mode, but ultimately the core of the calculus was fragmented and all fragments were removed using a 0 tip 1.9 [place] nitinol basket. Inspection of the ureter showed no evidence of ureteral trauma. A 0.038 inch Glidewire was passed through the ureteroscope, which was then withdrawn. An 11/13-[place] ureteral access catheter was passed over the wire, up to the proximal ureter. The [email or web address] flexible ureteroscope was then passed through the ureteral access catheter sheath and advanced under direct vision, up to the left renal pelvis. Each calyx was examined. Approximately 4 left renal calculi were identified, each treated utilizing a dusting mode. This left no residual calculus fragments exceeding the size of the laser fiber tip. Fluoroscopy showed no residual calculi, and none were seen upon final inspection of all calyces. Pullout ureteroscopy showed no evidence of ureteral trauma. The Glidewire was passed through the ureteroscope, which was removed. The Glidewire was then backloaded into the cystoscope, which was passed into the bladder. A 24 cm, 6 [place] double-J ureteral stent was placed over the wire. Proper stent positioning was verified fluoroscopically and endoscopically. The bladder was emptied and the cystoscope removed. Removed Stone fragments were saved and sent for chemical analysis. The patient tolerated the procedure well and was taken to the recovery room in stable condition. [employer] Report: Procedure Acuity: Semi-Urgent Stone Size and Location: 11 mm, left mid ureter Ureteral Dilation: No Ureteral Access Sheath Used: Yes Stone Sent for Analysis: Yes All Stones/Fragments Were Removed with a Basket: Yes Complications: No Preoperative Antibiotics Given: Yes Stent Placed: Yes If Stent Placed, Was String Left Attached: No If Stent Placed, When is it to be Removed: 1 week Discharge Medications: Toradol, tamsulosin, tolterodine
== END | disposition home or self-care (01) ==
LOC: OR 08:20
PROVIDERS: ATTEND Urology
DX: N13.2 Hydronephrosis with renal and ureteral calculous obstruction (principal); K21.9 Gastro-esophageal reflux disease without esophagitis; K57.30 Diverticulosis of large intestine without perforation or abscess without bleeding; J45.909 Unspecified asthma, uncomplicated; I10 Essential (primary) hypertension; E78.5 Hyperlipidemia, unspecified; E11.9 Type 2 diabetes mellitus without complications; F41.9 Anxiety disorder, unspecified; L23.1 Allergic contact dermatitis due to adhesives; Z83.3 Family history of diabetes mellitus; Z88.7 Allergy status to serum and vaccine; Z88.5 Allergy status to narcotic agent; Z88.1 Allergy status to other antibiotic agents; Z88.2 Allergy status to sulfonamides; Z88.0 Allergy status to penicillin; Z79.4 Long term (current) use of insulin; Z79.82 Long term (current) use of aspirin; Z79.899 Other long term (current) drug therapy
CPT/HCPCS: 82365; 74420; 74018; 52356; C2625; C1758; C1769; J2250; J0330; J1100; J2710; J0690; J2405; J2003; J3010; J2704; J1171; Q9967; J2371; J1596

== ENCOUNTER → 2024-07-04 | Outpatient (CLI) | payer BC ==
--- NOTE | 2024-07-04 16:08 | US ---
EXAMINATION TYPE: US kidneys/renal and bladder DATE OF EXAM: 07/04/2024 COMPARISON: NONE CLINICAL INDICATION: Female, 58 years old with history of N13.2 HYDRONEPHROSIS WITH RENAL AND URETERA L CALCU; Hx of stones removed in April from Left Kidney. TECHNIQUE: Grayscale imaging of the bilateral kidneys and urinary bladder: FINDINGS: EXAM MEASUREMENTS: Right Kidney: 10.4 x 3.8 x 4.8 cm Left Kidney: 9.5 x 4.8 x 4.0 cm Right Kidney: 9 mm stone seen mid pole. No hydronephrosis. Left Kidney: No hydronephrosis or masses seen Bladder: Nondistention precludes its evaluation. IMPRESSION: 1. No hydronephrosis. 2. A 9 mm nonobstructing right midpole renal stone. 3. Unable to assess the bladder as it is collapsed. [facility], Workstation: [email or web address], 07/04/2024 4:05 PM
== END | disposition home or self-care (01) ==
LOC: RADUSWWP 15:16
PROVIDERS: ATTEND Urology
DX: N13.2 Hydronephrosis with renal and ureteral calculous obstruction (principal)
CPT/HCPCS: 76770

== ENCOUNTER → 2024-09-21 | Outpatient (CLI) | payer BC ==
[2024-09-21 15:23] LABS: Basophils # (A) 0.14 X 10*3/uL (0.00-0.10); Basophils % (A) 2.1 %; Eosinophils # (A) 0.35 X 10*3/uL (0.04-0.35); Eosinophils % (A) 5.1 %; HCT 41.0 % (37.2-46.3); HGB 13.5 g/dL (12.0-15.0); Immature Grans, Automated 0.40 %; Lymphocytes # (A) 1.80 X 10*3/uL (0.90-5.00); Lymphocytes % (A) 26.4 %; MCH 29.3 pg (27.0-32.0); MCHC 32.9 g/dL (32.0-37.0); MCV 88.9 FL (80.0-97.0); Monocytes # (A) 0.55 X 10*3/uL (0.20-1.00); Monocytes % (A) 8.1 %; NRBC Per 100 WBC 0 X 10*3/uL (0.00-0.01); Neutrophils # (A) 3.95 X 10*3/uL (1.80-7.70); Neutrophils % (A) 57.9 %; Platelet Count 251 X 10*3/uL (140-440); RBC 4.61 X 10*6/uL (4.10-5.20); RDW 13.3 % (11.5-14.5); WBC 6.82 X 10*3/uL (4.50-10.00)
[2024-09-21 15:42] LABS: BUN/Creat Ratio 18.22 Ratio (12.00-20.00); Blood Urea Nitrogen 16.4 mg/dL (9.0-27.0); Cholesterol 218.00 mg/dL (0.00-200.00); Glucose 101 mg/dL (70-110); HDL Cholesterol 41.80 mg/dL (40.00-60.00); LDL Cholesterol,Calculated 149.0 mg/dL (0.0-131.0); Magnesium 2.4 mg/dL (1.5-2.4); Triglycerides 136.00 mg/dL (0.00-149.00); Uric Acid 5.8 mg/dL (2.9-7.7); VLDL Calculation 27.20 mg/dL (5.00-40.00)
[2024-09-21 15:43] LABS: ALT 42 U/L (8-44); AST 25 U/L (13-35); Albumin 4.2 g/dL (3.8-4.9); Albumin/Globulin Ratio 1.62 Ratio (1.60-3.17); Alkaline Phosphatase 69 U/L (41-126); Anion Gap 10.80 mmol/L (4.00-12.00); Calcium 9.5 mg/dL (8.7-10.3); Carbon Dioxide 26.2 mmol/L (21.6-31.8); Chloride 106 mmol/L (96-109); Globulin 2.6 g/dL (1.6-3.3); Potassium 4.9 mmol/L (3.5-5.5); Sodium 143 mmol/L (135-145); Total Protein 6.8 g/dL (6.2-8.2)
== END | disposition home or self-care (01) ==
LOC: LABWHC1 09:58
PROVIDERS: ATTEND Internal Medicine
DX: I10 Essential (primary) hypertension (principal); E10.39 Type 1 diabetes mellitus with other diabetic ophthalmic complication; Z87.442 Personal history of urinary calculi
CPT/HCPCS: 36415; 80053; 80061; 83036; 83735; 83970; 84443; 84550; 85025